=== PATIENT | male | born 1980 | race African-American/Black ===

== ENCOUNTER 2016-05-09 10:35 | Inpatient (IN) | payer MEDICAID ==
[2016-05-09] VITALS (16 sets, daily range): BP systolic 113–153; BP diastolic 56–89; PULSE 45–105; RESP 14–22; TEMP 98.7–100.1; O2SAT 95–100
[~2016-05-09] VITALS: Ht 182.9 cm; Wt 89.0 kg
[~2016-05-09 10:35] MED LIST: BACT2OIN TOP; BACT800T5 PO; CALA240T PO; CLIN150 PO; CLON0.5T PO; FIORIC PO; LACO100 PO; LEVE500 PO
[2016-05-09] MEDS ORDERED: LACO50 PO (10:42)
[2016-05-09] MEDS ORDERED: KEPP10002 PO (10:42)
[2016-05-09] MEDS ORDERED: LORazepam 2 MG/ML VIAL ONE (10:43)
[2016-05-09] MEDS ORDERED: VERA120T3 PO (10:47)
[2016-05-09] MEDS: LORazepam 2 MG/ML VIAL ONE ×2 (10:49→11:14)
--- NOTE | 2016-05-09 10:59 | PD ---
HPI Chief Complaint: Seizure Time Seen by Provider: 10:37 Travel History International Travel<30 days: No Contact w/Intl Traveler<30days: No Traveled to known affect area: No History of Present Illness HPI This patient has long-standing history of seizure problems. Patient is not able to provide any history or review of systems. He is brought in by his girlfriend. She reports that he had a headache this morning which always precedes his seizures. He then followed this with 3 separate seizures. His seizures are very similar. She reports that he looks to the left and starts blinking and twitching. He had a seizure in the exam room while I was looking at him and he did precisely that. He started drooling. He is nonverbal at this time [facility] Past Medical History Hx Anticoagulant Therapy: No Anxiety: Yes Cardiovascular Problems: No Chemotherapy: No Cerebrovascular Accident: Yes (AVM) Diabetes: No Diminished Hearing: No Endocrine: No Genitourinary: No Hypertension: Yes Immune Disorder: No Musculoskeletal: No Neurologic: Yes (AVM/ CVA) Reproductive: No Respiratory: No Migraines: Yes Seizures: Yes Past Surgical History Neurologic Surgery: Yes (brain sx with plate 2007) Social History Alcohol Use: No Tobacco Use: No Substance Use: Yes (marijuana once a week) Allergies-Medications (Allergen,Severity, Reaction): Coded Allergies: Iodine (Verified Allergy, Severe, 05/09/16) Penicillin (Verified Allergy, Severe, Anaphylaxis, 05/09/16) Percocet (Verified Allergy, Severe, Anaphylaxis, 05/09/16) PATIENT DENIES ALLERGY Dilantin (Verified Adverse Reaction, Intermediate, blurry vision, 11/26/15) Reported Meds & Prescriptions Reported Meds & Active Scripts Active Reported Verapamil (Verapamil HCl) 120 Mg Tab 240 Mg PO DAILY Vimpat (Lacosamide) 50 Mg Tab 200 PO BID Keppra (Levetiracetam) 1,000 Mg Tab 1,000 Mg PO Q8HR Review of Systems ROS Limitations: Clinical Condition, Altered Mental Status, Poor Historian Physical Exam Narrative GENERAL: Well-nourished, well-developed patient who appears confused and postictal. SKIN: Warm and dry. HEAD: Atraumatic. Normocephalic. EYES: Pupils equal and round. No scleral icterus. No injection or drainage. ENT: No nasal bleeding or discharge. Mucous membranes pink and moist. Now has gag reflex as the seizure has past NECK: Trachea midline. No JVD. CARDIOVASCULAR: Regular rate and rhythm. No murmur appreciated. RESPIRATORY: No accessory muscle use. Clear to auscultation. Breath sounds equal bilaterally. GASTROINTESTINAL: Abdomen soft, non-tender, nondistended. Hepatic and splenic margins not palpable. MUSCULOSKELETAL: No obvious deformities. No clubbing. No cyanosis. No edema. NEUROLOGICAL: Awake but drowsy and confused. No obvious cranial nerve deficits. Difficult to gauge motor and sensory exams as he does not follow commands or participate in the exam. He is nonverbal. PSYCHIATRIC: Altered mood and affect; insight and judgment poor. Data Data Last Documented VS Vital Signs Date Time Temp Pulse Resp B/P Pulse Ox O2 Delivery O2 Flow Rate FiO2 05/09/16 11:49 45 20 152/89 100 05/09/16 11:08 Nasal Cannula 3 05/09/16 10:37 99.6 Orders Lorazepam Inj (Ativan Inj) (05/09/16 10:43) Lorazepam Inj (Ativan Inj) (05/09/16 10:49) Lorazepam Inj (Ativan Inj) (05/09/16 11:00) Iv Access Insert/Monitor (05/09/16 10:50) Complete Blood Count With Diff (05/09/16 10:50) Basic Metabolic Panel (Bmp) (05/09/16 10:50) Ct Brain W/O Iv Contrast(Rout) (05/09/16 ) Valproate Inj (Depacon Inj) (05/09/16 11:30) Etomidate Inj (Amidate Inj) (05/09/16 11:35) Succinylcholine Inj (Quelicin Inj) (05/09/16 11:35) Propofol 1000 Mg/100 Ml Inj (Diprivan 10 (05/09/16 11:41) Labs Laboratory Tests Test 05/09/16 10:50 White Blood Count 6.9 TH/MM3 Red Blood Count 4.92 MIL/MM3 Hemoglobin 15.2 GM/DL Hematocrit 45.4 % Mean Corpuscular Volume 92.3 FL Mean Corpuscular Hemoglobin 30.9 PG Mean Corpuscular Hemoglobin 33.5 % Concent Red Cell Distribution Width 12.6 % Platelet Count 208 TH/MM3 Mean Platelet Volume 8.7 FL Neutrophils (%) (Auto) 60.5 % Lymphocytes (%) (Auto) 31.0 % Monocytes (%) (Auto) 6.3 % Eosinophils (%) (Auto) 1.4 % Basophils (%) (Auto) 0.8 % Neutrophils # (Auto) 4.2 TH/MM3 Lymphocytes # (Auto) 2.1 TH/MM3 Monocytes # (Auto) 0.4 TH/MM3 Eosinophils # (Auto) 0.1 TH/MM3 Basophils # (Auto) 0.1 TH/MM3 CBC Comment DIFF FINAL Differential Comment Sodium Level 143 MEQ/L Potassium Level 4.0 MEQ/L Chloride Level 107 MEQ/L Carbon Dioxide Level 28.3 MEQ/L Anion Gap 8 MEQ/L Blood Urea Nitrogen 15 MG/DL Creatinine 1.04 MG/DL Estimat Glomerular Filtration 99 ML/MIN Rate Random Glucose 131 MG/DL Calcium Level 9.1 MG/DL MDM Medical Decision Making Medical Screen Exam Complete: Yes Emergency Medical Condition: Yes Medical Record Reviewed: Yes Differential Diagnosis Status epilepticus, breakthrough seizure, tremor, intracranial hemorrhage Narrative Course I have reviewed the patient's electronic medical record. Reviewed his seizure admission from 2015 including neurologic consultation and brain MRI and MRA results When I evaluate him in the emergency room bed he is actively seizing The seizure continues and I gave him 1 mg IV Ativan Seizure persists. Patient is drooling and has no airway control so I am considering intubating him to obtain airway. I gave him a second L gram IV Ativan and just as I was going to start the intubation process he came out of the seizure. He now is confused and looking around but has quit drooling and has a gag reflex and is controlling his airway Patient arrives critically ill, essentially in status epilepticus After controlling the seizure I obtained lab studies and sent him to the brain scan are given his history of AVM and hemorrhage and craniotomy as well as the headache he had Brain CT shows stable encephalomalacia CBC metabolic profile is normal I reviewed with neurologist representative personal service Dr. Gupta She recommended a load of IV Depacon 1200 mg which we have initiated However the patient continued to seize and wanted to full-blown status epilepticus. He continued to drool and had no airway control and no gag reflex I have intubated him to control his airway INTUBATION: The patient was put in optimal position for the procedure. Rapid sequence intubation was initiated by me using 30 milligrams of etomidate IV and 130 milligrams of succinylcholine IV. The patient was intubated with a 80 cuffed endotracheal tube. Tube placement was confirmed by visualization of the tube and balloon passing through the cords, capnometry. Breath sounds were equal and well aerated bilaterally postintubation. No breath sounds over stomach. Patient tolerated procedure well. Unfortunately soon after intubation the cuff would not hold air and so I had to use the tube exchanger to replace the ET tube. The second ET tube seems to be holding better and he has saturations are 100% and I have started Diprivan drip. On the second to be has good color change and fogging of tube I reviewed his chest x-ray Patient is critically ill going to intensive care on a ventilator and getting loaded with IV Depacon for status epilepticus Call placed to kiln loader to discuss Multiple rechecks needed and constant monitoring in this complex patient Critical Care Narrative Aggregate critical care time was 80 minutes. Time to perform other separately billable procedures was not included in the critical care time. My time did not include minutes spent treating any other patients simultaneously or on activities that did not directly contribute to the patient's treatment. The services I provided to this patient were to treat and/or prevent clinically significant deterioration that could result in: Loss of airway, cardiopulmonary arrest, permanent brain injury I provided critical care services requiring my management, as noted below: Chart data review, documentation time, medication orders and management, vital sign assessments/reviewing monitor data, ordering and reviewing lab tests, ordering and interpreting/reviewing x-rays and diagnostic studies, care of the patient and discussion of the patient with the admitting physicians. Elkin Forbes MD May 09, 2016 10:59
[2016-05-09] MEDS ORDERED: LORazepam 2 MG/ML VIAL IV PUSH ONE (11:00)
[2016-05-09 11:09] LABS: AUTOMATED NEUTROPHIL # 4.2 TH/MM3 (1.8-7.7); BASOPHIL # 0.1 TH/MM3 (0-0.2); BASOPHIL % 0.8 % (0.0-2.0); EOSINOPHIL # 0.1 TH/MM3 (0-0.4); EOSINOPHIL % 1.4 % (0.0-4.0); HEMATOCRIT 45.4 % (39.0-51.0); HEMO FLAGS DIFF FINAL; LYMPHOCYTE # 2.1 TH/MM3 (1.0-4.8); MEAN CELL VOLUME 92.3 FL (80.0-100.0); MEAN CORPUSCULAR HEMOGLOBIN 30.9 PG (27.0-34.0); MEAN CORPUSCULAR HGB CONC 33.5 % (32.0-36.0); MONO % 6.3 % (0.0-8.0); NEUT % 60.5 % (16.0-70.0); PLATELET COUNT 208 TH/MM3 (150-450); RED BLOOD COUNT 4.92 MIL/MM3 (4.50-5.90); RED CELL DISTRIBUTION WIDTH 12.6 % (11.6-17.2); WHITE BLOOD COUNT 6.9 TH/MM3 (4.0-11.0)
--- NOTE | 2016-05-09 11:20 | RADRPT ---
EXAM DATE/TIME: 05/09/2016 10:59 [facility] COMPARISON: MRI BRAIN W & W/O CONTRAST, November 20, 2015, 9:25. CT BRAIN W/O CONTRAST, November 18, 2015, 19 :07. INDICATIONS : Seizure, altered mental status. RADIATION DOSE: 35.02 CTDIvol (mGy) MEDICAL HISTORY : Stroke. Seizures. Hypertension. SURGICAL HISTORY : Craniotomy. ENCOUNTER: Initial ACUITY: 1 day PAIN SCALE: Non-responsive LOCATION: cranial TECHNIQUE: Multiple contiguous axial images were obtained of the head. Using automated exposure control and adj ustment of the mA and/or kV according to patient size, radiation dose was kept as low as reasonably a chievable to obtain optimal diagnostic quality images. FINDINGS: CEREBRUM: The ventricles are normal for age. No evidence of midline shift, mass lesion, hemorrhage or acute in farction. No extra-axial fluid collections are seen. Chronic right parietal lobe encephalomalacia ag ain noted status post surgery. POSTERIOR FOSSA: The cerebellum and brainstem are intact. The 4th ventricle is midline. The cerebellopontine angle i s unremarkable. EXTRACRANIAL: The visualized portion of the orbits is intact. SKULL: The calvaria is intact. No evidence of skull fracture. CONCLUSION: 1. No evidence of acute intracranial abnormality. 2. Previous right craniotomy. Unchanged encephalomalacia of the right parietal lobe. Mitchell Morales MD on May 09, 2016 at 11:16 Board Certified Radiologist. This report was verified electronically.
[2016-05-09 11:23] LABS: BICARBONATE 28.3 MEQ/L (21.0-32.0)
[2016-05-09] MEDS ORDERED: SODIUM CHLORIDE 0.9% IV ONE (11:30)
[2016-05-09] MEDS ORDERED: VALPROATE IV ONE (11:30)
[2016-05-09] MEDS ORDERED: SUCCINYLCHOLINE CHLORIDE 200 MG/10 ML VIAL ONE (11:35)
[2016-05-09] MEDS ORDERED: ETOMIDATE 40 MG/20 ML VIAL ONE (11:35)
[2016-05-09] MEDS ORDERED: PROPOFOL 1000 MG/100 ML INJ 100 ML ONE (11:41)
[2016-05-09] MEDS: PROPOFOL 1000 MG/100 ML INJ 100 ML IV SCH ×3 (12:05→22:42)
[2016-05-09] MEDS ORDERED: ETOMIDATE 20 MG/10 ML VIAL IV PUSH ONE (12:15)
[2016-05-09] MEDS ORDERED: SUCCINYLCHOLINE CHLORIDE 200 MG/10 ML VIAL IV PUSH ONE (12:15)
--- NOTE | 2016-05-09 12:19 | RADRPT ---
EXAM DATE/TIME: 05/09/2016 12:13 [facility] COMPARISON: CHEST SINGLE AP, November 19, 2015, 4:05. INDICATIONS : Evaluate intubation MEDICAL HISTORY : None. SURGICAL HISTORY : None. ENCOUNTER: Initial ACUITY: 1 day PAIN SCORE: Non-responsive. LOCATION: Bilateral chest FINDINGS: Mild, patchy airspace opacities persist, mainly on the left. No pleural effusion seen. No pneumothora x. Heart size stable, upper limits of normal. Endotracheal tube tip is about 2.6 cm above the gerald. There is a nasogastric tube with tip in the s tomach. CONCLUSION: No significant change mild airspace opacities on the left. Endotracheal tube tip is about 2.6 cm abov e the gerald. Mitchell Morales MD on May 09, 2016 at 12:16 Board Certified Radiologist. This report was verified electronically.
[2016-05-09] MEDS ORDERED: levETIRAcetam 1000 MG INJ 100 ML IV ONE (12:30)
[2016-05-09 12:31] LABS: BLOOD GAS BASE EXCESS -0.1 mmol/L (-2-2); BLOOD GAS HCO3 24 mmol/L (22-26); BLOOD GAS METHEMOGLOBIN 2.4 % (0-2); BLOOD GAS O2 HGB SATURATION 95 % (90-100); BLOOD GAS OXYGEN CONTENT 20.4 Vol % (12.0-20.0); BLOOD GAS PCO2 41 mmHg (38-42); BLOOD GAS PO2 184 mmHG (61-120); CRITICAL VALUE NO; DRAW SITE LT RADIAL; FIO2 50 %; NUMBER OF ARTERIAL PUNCTURES 2; OXYGEN DEVICE VENTILATOR; STAT YES; TEMP CORR TO 98.6; ULNAR PULSE PRESENT
[2016-05-09] MEDS ORDERED: POTASSIUM PHOSPHATE INJ 30 MMOL in SODIUM CHLOR 0.9% 250 ML INJ 250 ML IV PRN (12:45)
[2016-05-09] MEDS ORDERED: POTASSIUM PHOSPHATE MONOBASIC 500 MG TAB PO PRN (12:45)
[2016-05-09] MEDS ORDERED: POTASSIUM CHLOR 40 MEQ PREMIX 100 ML IV PRN ×2 (12:45)
[2016-05-09] MEDS ORDERED: SENNOSIDES SYRUP 8.8 MG/5 ML CUP G-TUBE PRN (12:45)
[2016-05-09] MEDS ORDERED: GLUCAGON 1 MG/ML VIAL OTHER PRN (12:45)
[2016-05-09] MEDS ORDERED: SODIUM PHOSPHATE INJ 30 MMOL in SODIUM CHLOR 0.9% 250 ML INJ 240 ML IV PRN (12:45)
[2016-05-09] MEDS ORDERED: MISCELLANEOUS NURSING INFORMATION XX SCH (12:45)
[2016-05-09] MEDS ORDERED: MAGNESIUM OXIDE 400 MG TAB PO PRN (12:45)
[2016-05-09] MEDS ORDERED: PROPOFOL 1000 MG/100 ML INJ 100 ML IV SCH (12:45)
[2016-05-09] MEDS ORDERED: ONDANSETRON HCL 4 MG/2 ML VIAL IV PRN (12:45)
[2016-05-09] MEDS ORDERED: RESP: ALBUTEROL 2.5 MG/IPRATROPIUM 0.5 MG NEB (PRN) INH (12:45)
[2016-05-09] MEDS ORDERED: MAGNESIUM SULFATE INJ 4 GM in SODIUM CHLORIDE 0.9% INJ 92 ML IV PRN (12:45)
[2016-05-09] MEDS ORDERED: CHLORHEXIDINE GLUCONATE 2 % 1 PACK (2 CLOTHS) TOP PRN (12:45)
[2016-05-09] MEDS ORDERED: SODIUM CHLORIDE 0.9% FLUSH 5 ML FLUSH IV FLUSH PRN (12:45)
[2016-05-09] MEDS ORDERED: ACETAMINOPHEN 325 MG TAB PO PRN (12:45)
[2016-05-09] MEDS ORDERED: POTASSIUM CL 40 MEQ/30 ML LIQ UDC PO/TUBE PRN ×2 (12:45)
[2016-05-09] MEDS ORDERED: POTASSIUM CHLOR 20 MEQ PREMIX 100 ML IV PRN ×2 (12:45)
[2016-05-09] MEDS ORDERED: POTASSIUM PHOSPHATE MONOBASIC 500 MG TAB PO/TUBE PRN (12:45)
[2016-05-09] MEDS ORDERED: MAGNESIUM SULFATE INJ 2 GM in SODIUM CHLORIDE 0.9% INJ 96 ML IV PRN (12:45)
--- NOTE | 2016-05-09 12:49 | HHI.HP ---
[facility] Service Critical Care Medicine Primary Care Physician Manas Cottrell M.D. Admission Diagnosis status epilepticus Diagnosis: (1) Cannabis use, unspecified, uncomplicated Diagnosis: Principal (2) Anxiety disorder, unspecified Diagnosis: Principal (3) Status epilepticus Diagnosis: Principal (4) Acute respiratory failure Diagnosis: Principal (5) History of arteriovenous malformation (AVM) Diagnosis: Principal (6) Hypertension Diagnosis: Principal Chief Complaint: Seizure Travel History International Travel<30 Days: No Contact w/Intl Traveler <30 Da: No Traveled to Known Affected Are: No History of Present Illness This is a 35-year-old AA male. Date of admission 05/09/2016. Past medical history includes migraine induced seizure disorder, status post craniotomy secondary to AVM in remote past, hypertension. Girlfriend states patient is compliant with medications. Patient presents to [facility] with seizure activity since at least 10 AM this morning. Patient does have history of craniotomy secondary to AVM secondary to a left-sided CVA in the remote past. He is said several seizures most recently June and November 2015 both of which required intubation. Usually the seizure brought by stressors. Yesterday , patient did have an alcoholic beverage which is unusual for him. Patient was complaining of a headache as of 6:30 this am. His girlfriend found the patient he was actively seizing. Patient received Ativan in [place] [facility]. Patient received 1200 mg Depakote IV after discussion with neurology. Patient was intubated with 130 mg succinylcholine 30 mg etomidate for airway protection. CT head revealed rights parietal/ temporal encephalomalacia but no other acute findings. Patient is currently admitted to propofol drip at 30 mics per kilogram per minute. 2 external jugular vein catheters and one peripheral IV was placed. We are asked to admit. Review of Systems ROS Limitations: Intubated Past Family Social History Allergies: Coded Allergies: Betadine (Verified Allergy, Severe, 05/09/16) SKIN BURNING Penicillin (Verified Allergy, Severe, Anaphylaxis, 05/09/16) Percocet (Verified Allergy, Severe, Anaphylaxis, 05/09/16) PATIENT DENIES ALLERGY Dilantin (Verified Adverse Reaction, Intermediate, blurry vision, 11/26/15) Past Medical History Anxiety Cannabis use Seizure disorder Hypertension History of AVM status post craniotomy Past Surgical History Craniotomy secondary to AVM Reported Medications Verapamil 240 mg by mouth daily Keppra 1000m g by mouth 3 times a day Vimpat 200 mg by mouth twice a day Active Ordered Medications Reviewed in EMR Family History Hypertension diabetes mother side Social History Denies tobacco or IV drug use. Positive for THC use. Social alcohol. According to girlfriend consumed 1 alcoholic beverage last night Physical Exam Vital Signs Vital Signs Date Time Temp Pulse Resp B/P Pulse Ox O2 Delivery O2 Flow Rate FiO2 05/09/16 12:00 92 22 145/79 100 Ventilator 50 05/09/16 11:52 50 05/09/16 11:49 45 20 152/89 100 05/09/16 11:08 105 20 153/77 100 Nasal Cannula 3 05/09/16 10:41 95 Nasal Cannula 2 05/09/16 10:37 99.6 98 18 150/62 98 Physical Exam GENERAL: 35-year-old male, critically ill currently resting bed in no acute distress SKIN: Warm and dry. No rash HEAD: Atraumatic. Normocephalic. EYES: Pupils equal and round about 3 mm bilaterally and reactive. No scleral icterus. No injection or drainage. ENT: No nasal bleeding or discharge. Mucous membranes pink and moist. NECK: Trachea midline. No JVD. CARDIOVASCULAR: Regular rate and rhythm. S1, S2. No S4. Without murmur RESPIRATORY:. Clear to auscultation. Breath sounds equal bilaterally. GASTROINTESTINAL: Abdomen soft, non-tender, nondistended. Hypoactive bowel sounds are appreciated MUSCULOSKELETAL: Extremities without clubbing, cyanosis, or edema. No obvious deformities. NEUROLOGICAL: Withdraws to pain in all 4 extremities. Positive gag. Positive corneal reflex. No obvious external epileptiform noted Laboratory Laboratory Tests Test 05/09/16 10:50 White Blood Count 6.9 Red Blood Count 4.92 Hemoglobin 15.2 Hematocrit 45.4 Mean Corpuscular Volume 92.3 Mean Corpuscular Hemoglobin 30.9 Mean Corpuscular Hemoglobin 33.5 Concent Red Cell Distribution Width 12.6 Platelet Count 208 Mean Platelet Volume 8.7 Neutrophils (%) (Auto) 60.5 Lymphocytes (%) (Auto) 31.0 Monocytes (%) (Auto) 6.3 Eosinophils (%) (Auto) 1.4 Basophils (%) (Auto) 0.8 Neutrophils # (Auto) 4.2 Lymphocytes # (Auto) 2.1 Monocytes # (Auto) 0.4 Eosinophils # (Auto) 0.1 Basophils # (Auto) 0.1 CBC Comment DIFF FINAL Differential Comment Sodium Level 143 Potassium Level 4.0 Chloride Level 107 Carbon Dioxide Level 28.3 Anion Gap 8 Blood Urea Nitrogen 15 Creatinine 1.04 Estimat Glomerular Filtration 99 Rate Random Glucose 131 Calcium Level 9.1 Result Diagram: 05/09/16 1050 05/09/16 1050 Imaging Last Impressions Head CT 05/09/16 0000 Signed Impressions: Service Date/Time: Monday, May 09, 2016 10:59 - CONCLUSION: 1. No evidence of acute intracranial abnormality. 2. Previous right craniotomy. Unchanged encephalomalacia of the right parietal lobe. Mitchell Morales MD Chest X-Ray 05/09/16 0000 Signed Impressions: Service Date/Time: Monday, May 09, 2016 12:13 - CONCLUSION: No significant change mild airspace opacities on the left. Endotracheal tube tip is about 2.6 cm above the gerald. 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 These been resumed at 20 mg IV twice a day Vimpat and 50 mg Keppra twice a day Loaded with Depakote in ED approximately 1200 mg. Currently on 500 mg 3 times a day. Recheck level in a.m. EEG/MRI ordered. Dr. Gupta - Neurology consulted Currently on propofol/Versed drips for sedation/analgesia while intubated Goal of RA SS -2 Daily sedation vacation MRI 07/27 revealed cephalization right-sided parietal lobe probably from prior AVM with gliosis CT head this admission revealed similar findings right-sided parietal lobe encephalomalacia's CV: History of hypertension Currently normal saline at 84 cc now. Patient is on propofol 240 mg daily at home for hypertension. This is been held As needed labetalol/hydralazine/Nitropaste is systolic blood pressure greater than 160 Resp: Acute respiratory failure secondary to altered mental status ACV 14/500/5/100 Ventilator bundle As needed bronchodilator therapy Spontaneous breathing trials daily Chest x-ray reveals no significant cardiopulmonary findings. ET tube 3 cm above gerald. ABG post intubation currently pending GI: Initiate enteral feedings with Jevity 1.5 goal 55 cc an hour Protonix for GI prophylaxis Colace/as needed Senokot for bowel regimen Liver function tests pending : Antonio will be placed for accurate I's and O's in a critically ill patient Endo: Hyperglycemia Sliding-scale insulin with Accu-Cheks to maintain euglycemia/low regimen/every 6 hours Renal: Creatinine currently within normal limits. Recheck BMP in a.m. Heme: CBC within normal limits. Recheck level in a.m. Coags currently pending ID: Monitor for infection FEN: Replace electrolytes as clinically indicated using ICU A protocol MSK: PT evaluate and treat Access - Utilize peripheral IV. Central line if indicated Prophylaxis - GI - Protonix - DVT - SCD/pharmacological prophylaxis currently held in light of seizure activity. Resume when clinically indicated Critical Care: The total critical care time was 65 minutes. Time to perform other separately billable procedures was not included in the critical care time. Code Status Full code Discussed Condition With Dr. Forbes/ED physician. Patient's girlfriend. ED RN. Care plan discussed and all questions answered. Problem Qualifiers (1) Acute respiratory failure: Qualified Code: J96.00 - Acute respiratory failure, unspecified whether with hypoxia or hypercapnia (2) Hypertension: Qualified Code: I10 - Essential hypertension Avni Hayes MD May 09, 2016 12:49
[2016-05-09] MEDS: ARTIFICIAL TEARS OPTH SOLN 15 ML BTL EACH EYE SCH ×2 (13:00→17:34)
[2016-05-09 13:15] LABS: AMPHETAMINE, URINE NEG (NEG); BARBITURATES, URINE NEG (NEG); COCAINE, URINE NEG (NEG)
[2016-05-09] MEDS ORDERED: LABETALOL HCL 100 MG/20 ML VIAL IV PUSH PRN (13:15)
[2016-05-09] MEDS ORDERED: hydrALAZINE HCL 20 MG/ML VIAL IV PUSH PRN (13:15)
[2016-05-09] MEDS ORDERED: NITROGLYCERIN 2% OINT 1 GM PACKET TOPICAL PRN (13:15)
--- NOTE | 2016-05-09 13:24 | EKG ---
Date Performed: 05/09/2016 Time Performed: 10:40:26 PTAGE: 35 years EKG: Sinus rhythm WITH MARKED SINUS ARRHYTHMIA BORDERLINE ECG PREVIOUS TRACING : 11/18/2015 20.01 No significant change from previous tracing noted. DOCTOR: Jules Jovel Interpretating Date/Time 05/09/2016 13:24:29
[2016-05-09] MEDS: SODIUM CHLOR 0.9% 1000 ML INJ 1,000 ML IV SCH ×2 (13:45→23:56)
[2016-05-09] MEDS ORDERED: MIDAZOLAM 100 MG/ML INJ 100 ML ONE (13:48)
[2016-05-09] MEDS: MIDAZOLAM 100 MG/ML INJ 100 ML IV SCH (13:51)
[2016-05-09 13:54] LABS: ALKALINE PHOSPHATASE 85 U/L (45-117); ALT (GPT) 79 U/L (12-78); AST (GOT) 32 U/L (15-37); CREATINE KINASE 185 U/L (39-308); INDIRECT BILIRUBIN 0.4 MG/DL (0.0-0.8); MAGNESIUM 2.2 MG/DL (1.5-2.5); TOTAL BILIRUBIN ADULT 0.5 MG/DL (0.2-1.0)
--- NOTE | 2016-05-09 14:47 | RADRPT ---
EXAM DATE/TIME: 05/09/2016 14:12 [facility] COMPARISON: CT BRAIN W/O CONTRAST, May 09, 2016, 10:59. MRI BRAIN W & W/O CONTRAST, November 20, 2015, 9: 25. INDICATIONS : Seizures. MEDICAL HISTORY : Seizures. SURGICAL HISTORY : Craniotomy. ENCOUNTER: Initial ACUITY: 1 day PAIN SCORE: 0/10 LOCATION: TECHNIQUE: Multiplanar, multisequence MRI of the brain was performed without contrast. FINDINGS: No bleed, mass, mass effect or midline shift. There is no restricted diffusion. Changes of previous right parietal craniotomy again noted. There is chronic encephalomalacia and old hemosiderin deposition in the right parietal lobe, unchanged. CONCLUSION: 1. No bleed, acute infarct or other acute intracranial abnormality. 2. Surgical changes of the right parietal lobe again noted. Mitchell Morales MD on May 09, 2016 at 14:44 Board Certified Radiologist. This report was verified electronically.
[2016-05-09] MEDS ORDERED: CHLORHEXIDINE GLUCONATE 2 % 1 PACK (2 CLOTHS)(extra cloths) TOP PRN (15:15)
--- NOTE | 2016-05-09 16:49 | MG ---
cc: GILBERT OCHOA M.D. Lab No: Date: 05/09/2016 Age: Sex: M Race: DATE OF 1980, 35 years old ELECTROENCEPHALOGRAM NUMBER [id number] Freddy Tuttlelie 26 Photic stimulation, intubated, sedated with Diprivan, moving extremities spontaneously. CT shows right craniotomy. MRI did not show any acute changes. The right craniotomy from an AVM. History of seizures, currently started on Depakote but on Vimpat and Keppra at home. Ativan had been given as well. DESCRIPTION OF RECORD There is some 7-8 Hz background rhythm at times. EKG looks artifactual at times but generally sinus rhythm. Some noise and the activity from the blood pressure cuff inflating but overall no epileptic activity. Photic stimulation, no significant driving response. IMPRESSION Some mild background slowing seen may be due to sedation effect. No evidence of epileptic activity in this one recording. Clinical correlation. MD PHILIPPE Sal/ABISAI /4:21 PM /4:41 PM
[2016-05-09] MEDS: VALPROATE INJ 500 MG in SODIUM CHLORIDE 0.9% INJ 100 ML IV SCH (17:30)
[2016-05-09] MEDS: INSULIN NovoLIN REGULAR SUPPLEMENTAL SCALE SQ SCH ×2 (17:31→23:55)
[2016-05-09] MEDS: DEXTROSE 50% IN WATER 50 ML VIAL(D50) IV PUSH PRN ×2 (17:33→20:09)
--- NOTE | 2016-05-09 17:45 | MB ---
cc: GILBERT OCHOA M.D. DATE OF CONSULTATION 05/09/2016 DATE OF 1980, 35 years old REASON FOR CONSULTATION Seizures, possible status. HISTORY OF THE PRESENT ILLNESS A 35-year-old man with a history of migraines, epilepsy, craniotomy due to AVMs in the past and hypertension. He is on antiepileptic medication. He is compliant. He comes in because of seizure activity since about 10 o'clock in the morning. He had a craniotomy from the AVM left-sided in the past. Had several seizures from June to November which required intubation. When he was last seen here, my partner Dr. Rowan had seen him. Medications were adjusted, increased. Currently on Keppra 1000 mg three times a day and Vimpat 200 mg twice a day. Apparently yesterday he did have some alcohol which is unusual for him. He was complaining of a headache this morning and found seizing. He had about five seizures, received some Depakote. I informed the ED to put him on 1200 mg of Depakote. He was intubated for airway infection. ALLERGIES BETADINE, PENICILLIN, PERCOCET, DILANTIN SOME ADVERSE REACTION BLURRY VISION BUT MAY NOT BE A TRUE ALLERGY. PAST MEDICAL HISTORY As stated. MEDICATIONS Home medicines are: 1. Verapamil. 2. Keppra. 3. Vimpat. SOCIAL HISTORY Denies tobacco or IV drugs. Positive for THC, social alcohol. Apparently had stated he consumed one drink yesterday. PHYSICAL EXAMINATION VITAL SIGNS: Temperature is 99.6, pulse 76, respiratory rate 18, blood pressure 119/58. Sating at 100% on ventilator with FIO2 of 100%. GENERAL: He is intubated on the ventilator on sedation, Diprivan and versed. NEUROLOGICAL: Pinpoint pupils, sedated examination. Does not follow. Does not move. Tone is flaccid. Toes are neutral. LABORATORY DATA CBC unremarkable. Chemistries, lactic acid 2.4, ammonia was 58, phosphorus 1.8, ALT 79. Toxicology positive for cannabinoids. Keppra level is pending. IMAGING He did have an MRI of the brain that did not show any acute findings except for surgical changes over the right parietal lobe. IMPRESSION Seizure, refractory status. RECOMMENDATIONS The recommendations are to continue Keppra current dose, Vimpat current dose and continue Depacon 500 mg q. eight. Check a level in the morning. EEG was just completed, the report is pending. Hopefully if stable in the morning he may be weaned off the ventilator. Continue current care. Further recommendations accordingly. MD PHILIPPE Sal/ABISAI /4:07 PM /5:27 PM
[2016-05-09] MEDS: levETIRAcetam INJ 1,500 MG in SODIUM CHLORIDE 0.9% INJ 100 ML IV SCH (20:22)
[2016-05-09] MEDS: DOCUSATE SODIUM 100 MG CAP PO SCH (20:35)
[2016-05-09] MEDS: SODIUM CHLORIDE 0.9% FLUSH 5 ML FLUSH IV FLUSH SCH (20:36)
[2016-05-09] MEDS: JUVEN POWDER 1 PACK G-TUBE SCH (21:00)
[2016-05-09] MEDS ORDERED: levETIRAcetam INJ 500 MG in SODIUM CHLORIDE 0.9% INJ 100 ML IV SCH (21:00)
[2016-05-09] MEDS ORDERED: levETIRAcetam 1000 MG INJ 100 ML IV SCH (21:00)
[2016-05-09] MEDS: CHLORHEXIDINE 0.12% (ORAL KIT) 15 ML CUP MT SCH (22:42)
[2016-05-09] MEDS: LACOSAMIDE INJ 200 MG in SODIUM CHLORIDE 0.9% INJ 100 ML IV SCH (22:43)
[2016-05-10] VITALS (15 sets, daily range): BP systolic 112–133; BP diastolic 53–69; PULSE 64–89; RESP 16–20; TEMP 98–99.3; O2SAT 98–100
[2016-05-10] MEDS: PROPOFOL 1000 MG/100 ML INJ 100 ML IV SCH ×2 (01:20→06:24)
[2016-05-10] MEDS: MIDAZOLAM 100 MG/ML INJ 100 ML IV SCH (01:20)
[2016-05-10] MEDS: VALPROATE INJ 500 MG in SODIUM CHLORIDE 0.9% INJ 100 ML IV SCH ×3 (01:22→17:58)
[2016-05-10] MEDS ORDERED: CHLORHEXIDINE GLUCONATE 2 % 1 PACK (2 CLOTHS) TOP SCH (04:00)
[2016-05-10] MEDS: CHLORHEXIDINE GLUCONATE 2 % 1 PACK (2 CLOTHS)(taper/protocol) TOP SCH (04:00)
[2016-05-10 05:07] LABS: PROTHROMBIN TIME - PATIENT 11.4 SEC (9.8-11.6)
[2016-05-10 05:08] LABS: AUTOMATED NEUTROPHIL # 4.3 TH/MM3 (1.8-7.7); BASOPHIL % 0.6 % (0.0-2.0); EOSINOPHIL % 0.6 % (0.0-4.0); HEMATOCRIT 39.8 % (39.0-51.0); HEMO FLAGS DIFF FINAL; LYMPH % 27.6 % (9.0-44.0); LYMPHOCYTE # 1.9 TH/MM3 (1.0-4.8); MEAN CELL VOLUME 92.3 FL (80.0-100.0); MEAN CORPUSCULAR HEMOGLOBIN 31.2 PG (27.0-34.0); MEAN CORPUSCULAR HGB CONC 33.8 % (32.0-36.0); MONO % 8.6 % (0.0-8.0); NEUT % 62.6 % (16.0-70.0); PLATELET COUNT 147 TH/MM3 (150-450); RED BLOOD COUNT 4.31 MIL/MM3 (4.50-5.90); RED CELL DISTRIBUTION WIDTH 12.9 % (11.6-17.2); WHITE BLOOD COUNT 6.8 TH/MM3 (4.0-11.0)
[2016-05-10 05:33] LABS: ALKALINE PHOSPHATASE 65 U/L (45-117); ALT (GPT) 52 U/L (12-78); ANION GAP 7 MEQ/L (5-15); AST (GOT) 29 U/L (15-37); BICARBONATE 27.8 MEQ/L (21.0-32.0); BLOOD UREA NITROGEN 9 MG/DL (7-18); CHLORIDE 109 MEQ/L (98-107); GLOMERULAR FILTRATION RATE 102 ML/MIN (>89); MAGNESIUM 2.3 MG/DL (1.5-2.5); POTASSIUM 3.9 MEQ/L (3.5-5.1); SODIUM (NA) 144 MEQ/L (136-145); TOTAL BILIRUBIN ADULT 0.6 MG/DL (0.2-1.0)
[2016-05-10] MEDS: INSULIN NovoLIN REGULAR SUPPLEMENTAL SCALE SQ SCH ×2 (06:00→17:56)
[2016-05-10] MEDS: CHLORHEXIDINE 0.12% (ORAL KIT) 15 ML CUP MT SCH ×2 (08:00→20:00)
[2016-05-10] MEDS: ARTIFICIAL TEARS OPTH SOLN 15 ML BTL EACH EYE SCH ×3 (09:00→19:30)
[2016-05-10] MEDS: JUVEN POWDER 1 PACK G-TUBE SCH ×2 (09:00→21:00)
[2016-05-10] MEDS: LACOSAMIDE INJ 200 MG in SODIUM CHLORIDE 0.9% INJ 100 ML IV SCH ×2 (09:12→21:00)
[2016-05-10] MEDS: DOCUSATE SODIUM 100 MG CAP PO SCH ×2 (09:13→21:00)
[2016-05-10] MEDS: PANTOPRAZOLE SODIUM 40 MG VIAL IV SCH (09:13)
[2016-05-10] MEDS: SODIUM CHLORIDE 0.9% FLUSH 5 ML FLUSH IV FLUSH SCH ×2 (09:13→21:00)
[2016-05-10] MEDS: levETIRAcetam INJ 1,500 MG in SODIUM CHLORIDE 0.9% INJ 100 ML IV SCH (09:13)
--- NOTE | 2016-05-10 14:07 | HHI.CCPN ---
Subjective Remarks/Hospital Course This is a 35-year-old AA male. Date of admission 05/09/2016. Past medical history includes migraine induced seizure disorder, status post craniotomy secondary to AVM in remote past, hypertension. Girlfriend states patient is compliant with medications. Patient presents to [facility] with seizure activity since at least 10 AM this morning. Patient does have history of craniotomy secondary to AVM secondary to a left-sided CVA in the remote past. He is said several seizures most recently June and November 2015 both of which required intubation. Usually the seizure brought by stressors. Yesterday , patient did have an alcoholic beverage which is unusual for him. Patient was complaining of a headache as of 6:30 this am. His girlfriend found the patient he was actively seizing. Patient received Ativan in route continue to intimately cc 5 times ED. Patient received 1200 mg Depakote IV after discussion with neurology. Patient was intubated with 130 mg succinylcholine 30 mg etomidate for airway protection. CT head revealed rights parietal/ temporal encephalomalacia but no other acute findings. Patient is currently admitted to propofol drip at 30 mics per kilogram per minute. 2 external jugular vein catheters and one peripheral IV was placed. We are asked to admit. Subjective: 03/09: Afebrile. No acute issues overnight. Depakote levels pending per neurology's recommendation. Plan for CPAP trials today with possible extubation. Objective Vital Signs Date Time Temp Pulse Resp B/P Pulse Ox O2 Delivery O2 Flow Rate FiO2 05/10/16 11:27 100 30 05/10/16 08:00 66 05/10/16 08:00 98.7 20 121/58 05/09/16 13:30 Ventilator 05/09/16 11:08 3 Intake and Output 05/09/16 05/09/16 05/10/16 08:00 16:00 00:00 Intake Total 203 ml 941 ml Output Total 100 ml 565 ml Balance 103 ml 376 ml Result Diagram: 05/10/16 0450 05/10/16 0450 Imaging Last Impressions Head CT 05/09/16 0000 Signed Impressions: Service Date/Time: Monday, May 09, 2016 10:59 - CONCLUSION: 1. No evidence of acute intracranial abnormality. 2. Previous right craniotomy. Unchanged encephalomalacia of the right parietal lobe. Mitchell Morales MD Chest X-Ray 05/09/16 0000 Signed Impressions: Service Date/Time: Monday, May 09, 2016 12:13 - CONCLUSION: No significant change mild airspace opacities on the left. Endotracheal tube tip is about 2.6 cm above the gerald. Mitchell Morales MD Objective Remarks GENERAL: 35-year-old male, critically ill currently resting bed in no acute distress SKIN: Warm and dry. No rash HEAD: Atraumatic. Normocephalic. EYES: Pupils equal and round about 3 mm bilaterally and reactive. No scleral icterus. No injection or drainage. ENT: No nasal bleeding or discharge. Mucous membranes pink and moist. NECK: Trachea midline. No JVD. CARDIOVASCULAR: Regular rate and rhythm. S1, S2. No S4. Without murmur RESPIRATORY:. Clear to auscultation. Breath sounds equal bilaterally. GASTROINTESTINAL: Abdomen soft, non-tender, nondistended. Hypoactive bowel sounds are appreciated MUSCULOSKELETAL: Extremities without clubbing, cyanosis, or edema. No obvious deformities. NEUROLOGICAL: Withdraws to pain in all 4 extremities. Positive gag. Positive corneal reflex. 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 These been resumed at 20 mg IV twice a day Vimpat and 50 mg Keppra twice a day Loaded with Depakote in ED approximately 1200 mg. Currently on 500 mg 3 times a day. Depakote level 70 therapuetic, Keppra level pending EEG-results pending MRI ordered. Dr. Gupta - Neurology following Will hold propofol/Versed drips for sedation/analgesia for CPAP trials with possible extubation Goal of RASS -2 Daily sedation vacation MRI 07/27 revealed cephalization right-sided parietal lobe probably from prior AVM with gliosis CT head this admission revealed similar findings right-sided parietal lobe encephalomalacia's CV: History of hypertension Currently normal saline at 84 cc now. Home antihypertensive medications held. Will resume when clinically indicated As needed labetalol/hydralazine/Nitropaste is systolic blood pressure greater than 160 Resp: Acute respiratory failure secondary to altered mental status ACV 14/500/5/.40 Ventilator bundle As needed bronchodilator therapy Spontaneous breathing trials daily Chest x-ray reveals no significant cardiopulmonary findings. Begin CPAP trials SBT parameters-TV 650 RR 12 RSBI 18 NIF -19, + cuff leak- plan to extubate GI: Enteral feedings with Jevity 1.5 goal 55 cc an hour on hold for possible extubation Protonix for GI prophylaxis Colace/as needed Senokot for bowel regimen Liver function tests pending : Antonio will be placed for accurate I's and O's in a critically ill patient Endo: Hyperglycemia Sliding-scale insulin with Accu-Cheks to maintain euglycemia/low regimen/every 6 hours Renal: Creatinine currently within normal limits. Monitor BMP Heme: CBC within normal limits. Continue to monitor ID: Monitor for infection FEN: Replace electrolytes as clinically indicated using ICU A protocol MSK: PT evaluate and treat Access - Utilize peripheral IV. Central line if indicated Prophylaxis - GI - Protonix - DVT - SCD/pharmacological prophylaxis currently held in light of seizure activity. Resume heparin BID SQ Discussed with NURSES SUPERINTENDENT at bedside. Critical Care: The total critical care time was 31 minutes. Time to perform other separately billable procedures was not included in the critical care time. Physician Belinda Vizcarra MD May 10, 2016 14:07
[2016-05-10] MEDS: LORazepam 2 MG/ML VIAL IV PRN (20:05)
[2016-05-11] VITALS (11 sets, daily range): BP systolic 133–153; BP diastolic 66–83; PULSE 50–90; RESP 16–21; TEMP 97.6–98.8; O2SAT 97–100
[2016-05-11] MEDS: HEPARIN SODIUM - SQ 10,000 UNITS/ML VIAL SQ SCH ×3 (00:05→22:11)
[2016-05-11] MEDS: SODIUM CHLOR 0.9% 1000 ML INJ 1,000 ML IV SCH (00:07)
[2016-05-11] MEDS: levETIRAcetam INJ 1,500 MG in SODIUM CHLORIDE 0.9% INJ 100 ML IV SCH ×3 (00:07→22:10)
[2016-05-11] MEDS: VALPROATE INJ 500 MG in SODIUM CHLORIDE 0.9% INJ 100 ML IV SCH ×3 (02:46→18:00)
[2016-05-11] MEDS: CHLORHEXIDINE GLUCONATE 2 % 1 PACK (2 CLOTHS)(taper/protocol) TOP SCH (02:46)
[2016-05-11] MEDS: INSULIN NovoLIN REGULAR SUPPLEMENTAL SCALE SQ SCH ×5 (06:00→23:55)
[2016-05-11 06:12] LABS: HEMATOCRIT 36.1 % (39.0-51.0); MEAN CELL VOLUME 91.1 FL (80.0-100.0); MEAN CORPUSCULAR HEMOGLOBIN 31.7 PG (27.0-34.0); MEAN CORPUSCULAR HGB CONC 34.8 % (32.0-36.0); PLATELET COUNT 128 TH/MM3 (150-450); RED BLOOD COUNT 3.96 MIL/MM3 (4.50-5.90); RED CELL DISTRIBUTION WIDTH 12.7 % (11.6-17.2); REVIEW FLAG FINAL
[2016-05-11 06:39] LABS: BICARBONATE 26.3 MEQ/L (21.0-32.0); MAGNESIUM 2.1 MG/DL (1.5-2.5); POTASSIUM 3.6 MEQ/L (3.5-5.1)
[2016-05-11] MEDS: CHLORHEXIDINE 0.12% (ORAL KIT) 15 ML CUP MT SCH (08:00)
[2016-05-11] MEDS: ARTIFICIAL TEARS OPTH SOLN 15 ML BTL EACH EYE SCH ×2 (09:00→13:00)
[2016-05-11] MEDS: JUVEN POWDER 1 PACK G-TUBE SCH (09:00)
--- NOTE | 2016-05-11 09:04 | HHI.CCPN ---
Subjective Remarks/Hospital Course This is a 35-year-old AA male. Date of admission 05/09/2016. Past medical history includes migraine induced seizure disorder, status post craniotomy secondary to AVM in remote past, hypertension. Girlfriend states patient is compliant with medications. Patient presents to [facility] with seizure activity since at least 10 AM this morning. Patient does have history of craniotomy secondary to AVM secondary to a left-sided CVA in the remote past. He is said several seizures most recently June and November 2015 both of which required intubation. Usually the seizure brought by stressors. Yesterday , patient did have an alcoholic beverage which is unusual for him. Patient was complaining of a headache as of 6:30 this am. His girlfriend found the patient he was actively seizing. Patient received Ativan in route continue to intimately cc 5 times ED. Patient received 1200 mg Depakote IV after discussion with neurology. Patient was intubated with 130 mg succinylcholine 30 mg etomidate for airway protection. CT head revealed rights parietal/ temporal encephalomalacia but no other acute findings. Patient is currently admitted to propofol drip at 30 mics per kilogram per minute. 2 external jugular vein catheters and one peripheral IV was placed. We are asked to admit. Subjective: 03/09: Afebrile. No acute issues overnight. Depakote levels pending per neurology's recommendation. Plan for CPAP trials today with possible extubation. 03/10:The patient was extubated yesterday afternoon uneventful. The patient has been weaned off O2 via nasal cannula. Tolerating liquids. Will begin regular diet. Objective Vital Signs Date Time Temp Pulse Resp B/P Pulse Ox O2 Delivery O2 Flow Rate FiO2 05/11/16 06:00 71 05/11/16 04:00 98.3 21 133/66 98 05/10/16 20:16 21 05/10/16 16:04 Room Air 05/09/16 11:08 3 Intake and Output 05/10/16 05/10/16 05/11/16 08:00 16:00 00:00 Intake Total 1308 ml 975 ml Output Total 1550 ml 950 ml Balance -242 ml 25 ml Result Diagram: 05/11/16 0520 05/11/16 0520 Imaging Last Impressions Head CT 05/09/16 0000 Signed Impressions: Service Date/Time: Monday, May 09, 2016 10:59 - CONCLUSION: 1. No evidence of acute intracranial abnormality. 2. Previous right craniotomy. Unchanged encephalomalacia of the right parietal lobe. Mitchell Morales MD Chest X-Ray 05/09/16 0000 Signed Impressions: Service Date/Time: Monday, May 09, 2016 12:13 - CONCLUSION: No significant change mild airspace opacities on the left. Endotracheal tube tip is about 2.6 cm above the gerald. Mitchell Morales MD Objective Remarks GENERAL: 35-year-old male,resting comfortably in bed in no acute distress SKIN: Warm and dry. No rash HEAD: Atraumatic. Normocephalic. EYES: Pupils equal and round about 3 mm bilaterally and reactive. No scleral icterus. No injection or drainage. ENT: No nasal bleeding or discharge. Mucous membranes pink and moist. NECK: Trachea midline. No JVD. CARDIOVASCULAR: Regular rate and rhythm. S1, S2. No S4. Without murmur RESPIRATORY:. Clear to auscultation. Breath sounds equal bilaterally. GASTROINTESTINAL: Abdomen soft, non-tender, nondistended. Hypoactive bowel sounds are appreciated MUSCULOSKELETAL: Extremities without clubbing, cyanosis, or edema. No obvious deformities. 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 Continued at 20 mg IV twice a day Vimpat and 50 mg Keppra twice a day Loaded with Depakote in ED approximately 1200 mg. Currently on 500 mg 3 times a day. Depakote level 70 therapuetic, Keppra level pending EEG-results pending Dr. Gupta - Neurology following MRI 07/27 revealed cephalization right-sided parietal lobe probably from prior AVM with gliosis CT head this admission revealed similar findings right-sided parietal lobe encephalomalacia's CV: History of hypertension Currently normal saline at 84 cc now. Home antihypertensive medications will be resumed today As needed labetalol/hydralazine/Nitropaste is systolic blood pressure greater than 160 Resp: Acute respiratory failure secondary to altered mental status Room air O2 sat 97% As needed bronchodilator therapy Begin incentive spirometry GI: Begin regular diet Protonix for GI prophylaxis Colace/as needed Senokot for bowel regimen Liver function tests the normal limits : Antonio will be discontinued Endo: Hyperglycemia Sliding-scale insulin with Accu-Cheks to maintain euglycemia/low regimen/every 6 hours Renal: Creatinine currently within normal limits. Monitor BMP Heme: CBC within normal limits. Continue to monitor ID: Monitor for infection FEN: Replace electrolytes as clinically indicated MSK: PT evaluate and treat/out of bed Access - Utilize peripheral IV. Central line if indicated Prophylaxis - GI - Protonix - DVT - SCD/ heparin BID SQ Discussed with CUFF SETTER LOCKSTITCH at bedside. Critical Care: Level 2 Plan to transfer to hospitalist, transfer to neuro floor. Physician Belinda Vizcarra MD May 11, 2016 09:04
[2016-05-11] MEDS ORDERED: VERAPAMIL HCL 120 MG TAB PO SCH (09:15)
[2016-05-11] MEDS: PANTOPRAZOLE SODIUM 40 MG VIAL IV SCH (09:27)
[2016-05-11] MEDS: LACOSAMIDE INJ 200 MG in SODIUM CHLORIDE 0.9% INJ 100 ML IV SCH ×2 (09:28→22:10)
[2016-05-11] MEDS: SODIUM CHLORIDE 0.9% FLUSH 5 ML FLUSH IV FLUSH SCH ×2 (09:28→22:11)
[2016-05-11] MEDS: DOCUSATE SODIUM 100 MG CAP PO SCH ×2 (09:28→22:21)
[2016-05-12 01:04] VITALS: BP 110/64; PULSE 76; RESP 16; TEMP 97.6; O2SAT 97
[2016-05-12] MEDS: VALPROATE INJ 500 MG in SODIUM CHLORIDE 0.9% INJ 100 ML IV SCH ×2 (01:55→09:04)
[2016-05-12] MEDS: CHLORHEXIDINE GLUCONATE 2 % 1 PACK (2 CLOTHS)(taper/protocol) TOP SCH (04:50)
[2016-05-12 05:30] VITALS: BP 131/89; PULSE 74; RESP 16; TEMP 97.5; O2SAT 99
[2016-05-12] MEDS: INSULIN NovoLIN REGULAR SUPPLEMENTAL SCALE SQ SCH (06:00)
[2016-05-12 08:00] VITALS: BP 142/73; PULSE 60; RESP 16; TEMP 97.8; O2SAT 100
[2016-05-12] MEDS ORDERED: VERAPAMIL HCL 240 MG SUSTAINED RELEASE TAB PO SCH (09:00)
[2016-05-12] MEDS: levETIRAcetam INJ 1,500 MG in SODIUM CHLORIDE 0.9% INJ 100 ML IV SCH (09:01)
[2016-05-12] MEDS: LACOSAMIDE INJ 200 MG in SODIUM CHLORIDE 0.9% INJ 100 ML IV SCH (09:02)
[2016-05-12] MEDS: PANTOPRAZOLE SODIUM 40 MG VIAL IV SCH (09:03)
[2016-05-12] MEDS: SODIUM CHLORIDE 0.9% FLUSH 5 ML FLUSH IV FLUSH SCH (09:03)
[2016-05-12] MEDS: DOCUSATE SODIUM 100 MG CAP PO SCH (09:03)
[2016-05-12] MEDS: HEPARIN SODIUM - SQ 10,000 UNITS/ML VIAL SQ SCH (09:03)
[2016-05-12] MEDS: LORazepam 2 MG/ML VIAL IV PRN (09:28)
[2016-05-12 09:52] LABS: BICARBONATE 28.5 MEQ/L (21.0-32.0); MAGNESIUM 2.2 MG/DL (1.5-2.5); POTASSIUM 3.4 MEQ/L (3.5-5.1)
--- NOTE | 2016-05-12 10:59 | HHI.PR ---
Subjective Remarks resting comfortably with no distress. no seizures or any other complaints. wants to go home today. Objective Vitals Vital Signs Date Time Temp Pulse Resp B/P Pulse Ox O2 Delivery O2 Flow Rate FiO2 05/12/16 08:00 97.8 60 16 142/73 100 05/12/16 05:30 97.5 74 16 131/89 99 05/12/16 01:04 97.6 76 16 110/64 97 05/11/16 22:00 50 05/11/16 20:36 97.6 76 18 153/83 97 05/11/16 16:00 98.1 90 20 153/69 98 05/11/16 12:00 98.5 73 18 143/74 100 I/O 05/11/16 05/11/16 05/11/16 05/12/16 05/12/16 05/12/16 07:00 15:00 23:00 07:00 15:00 23:00 Intake Total 991 ml 960 ml Output Total 875 ml 800 ml Balance 116 ml 160 ml Intake Oral 960 ml IV Total 991 ml Output Urine Total 875 ml 800 ml # Voids 2 # Bowel Movements 0 Result Diagram: 05/11/16 0520 05/12/16 0800 Imaging Last Impressions Head CT 05/09/16 0000 Signed Impressions: Service Date/Time: Monday, May 09, 2016 10:59 - CONCLUSION: 1. No evidence of acute intracranial abnormality. 2. Previous right craniotomy. Unchanged encephalomalacia of the right parietal lobe. Mitchell Morales MD Chest X-Ray 05/09/16 0000 Signed Impressions: Service Date/Time: Monday, May 09, 2016 12:13 - CONCLUSION: No significant change mild airspace opacities on the left. Endotracheal tube tip is about 2.6 cm above the gerald. Mitchell Morales MD Brain MRI 05/09/16 0000 Signed Impressions: Service Date/Time: Monday, May 09, 2016 14:12 - CONCLUSION: 1. No bleed , acute infarct or other acute intracranial abnormality. 2. Surgical changes of the right parietal lobe again noted. Mitchell Morales MD Objective Remarks GENERAL: This is a well-nourished, well-developed patient, in no apparent distress. CARDIOVASCULAR: Regular rate and regular rhythm without murmurs, gallops, or rubs. RESPIRATORY: Clear to auscultation. Breath sounds equal bilaterally. No wheezes , rales, or rhonchi. GASTROINTESTINAL: Abdomen soft, non-tender, nondistended. Normal, active bowel sounds MUSCULOSKELETAL: Extremities without clubbing, cyanosis, or edema. NEURO: Alert & Oriented x4 to person, place, time, situation. Moves all ext x4 Procedures endotracheal intubation. Medications and IVs Current Medications Lorazepam (Ativan Inj) 2 mg STK-MED ONCE .ROUTE ; Start 05/09/16 at 10:43; Stop 05/09/16 at 10:44; Status DC Lorazepam (Ativan Inj) 2 mg STK-MED ONCE .ROUTE Last administered on 05/09/16 11:14; Start 05/09/16 at 10:49; Stop 05/09/16 at 10:50; Status DC Lorazepam 2 mg 2 mg ONCE ONCE IV PUSH Last administered on 05/09/16 11:08; Start 05/09/16 at 11:00; Stop 05/09/16 at 11:01; Status DC Valproate Sodium/ Sodium Chloride (Depacon Inj/NS Inj) 112 ml @ 105 mls/hr ONCE ONCE IV Last administered on 05/09/16 11:55; Start 05/09/16 at 11:30; Stop 05/09/16 at 12:33; Status DC Etomidate (Amidate Inj) 40 mg STK-MED ONCE .ROUTE ; Start 05/09/16 at 11:35; Stop 05/09/16 at 11:36; Status DC Succinylcholine Chloride 200 mg 200 mg STK-MED ONCE .ROUTE ; Start 05/09/16 at 11:35; Stop 05/09/16 at 11:36; Status DC Propofol 100 ml @ As Directed STK-MED ONCE .ROUTE ; Start 05/09/16 at 11:41; Stop 05/09/16 at 11:42; Status DC Propofol (Diprivan 1000 Mg/100ml Inj) 100 ml @ 0 mls/hr TITRATE IV Last administered on 05/10/16 06:24; Start 05/09/16 at 12:00; Stop 05/11/16 at 08:48 ; Status DC Etomidate (Amidate Inj) 30 mg ONCE ONCE IV PUSH Last administered on 12:13; Start 05/09/16 at 12:15; Stop 05/09/16 at 12:16; Status DC Succinylcholine Chloride 130 mg 130 mg ONCE ONCE IV PUSH Last administered on 05/09/16 12:14; Start 05/09/16 at 12:15; Stop 05/09/16 at 12:16; Status DC Lacosamide 200 mg/ Sodium Chloride 120 ml @ 120 mls/hr Q12HR IV Last administered on 05/12/16 09:02; Start 05/09/16 at 21:00 Levetriacetam 100 ml @ 400 mls/hr Q12HR IV ; Start 05/09/16 at 21:00; Stop at 21:00; Status DC Levetriacetam 500 mg/Sodium Chloride 105 ml @ 420 mls/hr Q12HR IV ; Start 05/09 at 21:00; Stop 05/09/16 at 21:00; Status DC Levetriacetam 100 ml @ 400 mls/hr BOLUS ONCE IV Last administered on 12:55; Start 05/09/16 at 12:30; Stop 05/09/16 at 12:44; Status DC Valproate Sodium 500 mg/Sodium Chloride 105 ml @ 105 mls/hr Q8H IV Last administered on 05/11/16 02:46; Start 05/09/16 at 18:00 Sodium Chloride (NS 1000 ml Inj) 1,000 ml @ 84 mls/hr [id number] IV Last administered on 05/11/16 00:07; Start 05/09/16 at 13:00; Stop 05/11/16 at 08:49 ; Status DC IV Flush (NS Flush) 2 ml UNSCH PRN IV FLUSH FLUSH AFTER USING IV ACCESS; Start 05/09/16 at 12:45 IV Flush (NS Flush) 2 ml BID IV FLUSH Last administered on 05/12/16 09:03; Start 05/09/16 at 21:00 Acetaminophen (Tylenol) 650 mg Q6H PRN PO PAIN 1-10 AND/OR FEVER >101F; Start 05/09/16 at 12:45 Pantoprazole Sodium (Protonix Inj) 40 mg DAILY IV Last administered on 09:03; Start 05/10/16 at 09:00 Lorazepam (Ativan Inj) 1 mg Q1H PRN IV Agitation/Sedation Last administered on 05/12/16 09:28; Start 05/09/16 at 12:45 Artificial Tears (Tears Naturale Opth Soln) 1 drop TID EACH EYE ; Start at 13:00; Stop 05/11/16 at 17:28; Status DC Ondansetron HCl (Zofran Inj) 4 mg Q6H PRN IV NAUSEA OR VOMITING; Start at 12:45 Docusate Sodium (Colace) 100 mg BID PO Last administered on 05/12/16 09:03; Start 05/09/16 at 21:00 Sennosides (Senna Liq) 17.6 mg Q12H PRN G-TUBE CONSTIPATION; Start 05/09/16 at 12:45 Albuterol/ Ipratropium (Duoneb Neb) 1 ampule Q2HR NEB PRN INH WHEEZING; Start 05/09/16 at 12:45 Miscellaneous Information 1 Q361D XX ; Start 05/09/16 at 12:45; Stop 05/09/16 at 15:12; Status DC Chlorhexidine Gluconate (Chlorhexidine 2% Cloth) 3 pack Taper DAILY@04 TOP ; Start 05/10/16 at 04:00; Stop 05/10/16 at 04:00; Status DC Chlorhexidine Gluconate 3 pack 3 pack UNSCH PRN TOP HYGIENIC CARE; Start at 12:45; Stop 05/09/16 at 15:12; Status DC Propofol 100 ml @ 0 mls/hr TITRATE IV ; Start 05/09/16 at 12:45; Stop 05/09/16 at 12:54; Status DC Midazolam HCl 100 ml @ 0 mls/hr TITRATE IV Last administered on 05/10/16 01:20 ; Start 05/09/16 at 12:45; Stop 05/11/16 at 08:49; Status DC Potassium Chloride 100 ml @ 50 mls/hr Q2H PRN IV For Potassium 2.8 - 3.2 mEq/L ; Start 05/09/16 at 12:45; Stop 05/11/16 at 18:37; Status DC Potassium Chloride (KCl 20 Meq Premix Inj) 100 ml @ 50 mls/hr Q2H PRN IV For Potassium 2.8 - 3.2 mEq/L; Start 05/09/16 at 12:45; Stop 05/11/16 at 18:37; Status DC Potassium Chloride 40 meq 40 meq UNSCH PRN PO/TUBE For Potassium 3.3 - 3.5 mEq/ L; Start 05/09/16 at 12:45; Stop 05/11/16 at 18:37; Status DC Potassium Chloride 100 ml @ 25 mls/hr UNSCH PRN IV For Potassium 3.3 - 3.5 mEq /L; Start 05/09/16 at 12:45; Stop 05/11/16 at 18:34; Status DC Potassium Chloride 100 ml @ 50 mls/hr Q2H PRN IV For Potassium 3.3 - 3.5 mEq/L ; Start 05/09/16 at 12:45; Stop 05/11/16 at 18:37; Status DC Magnesium Sulfate/ Sodium Chloride (Magnesium Sulfate Inj/NS Inj) 100 ml @ 50 mls/hr UNSCH PRN IV For Magnesium 0.9 - 1.1 mg/dL; Start 05/09/16 at 12:45; Stop 05/11/16 at 18:34; Status DC Magnesium Oxide 800 mg 800 mg UNSCH PRN PO For Magnesium 1.2 - 1.6 mg/dL; Start 05/09/16 at 12:45; Stop 05/11/16 at 18:37; Status DC Magnesium Sulfate/ Sodium Chloride (Magnesium Sulfate Inj/NS Inj) 100 ml @ 50 mls/hr UNSCH PRN IV For Magnesium 1.2 - 1.6 mg/dL; Start 05/09/16 at 12:45; Stop 05/11/16 at 18:34; Status DC Potassium Phosphate 2000 mg 2,000 mg Q4H PRN PO For Phosphorus < 2.5 mg/dL; Start 05/09/16 at 12:45; Stop 05/11/16 at 18:37; Status DC Sodium Phosphate/ Sodium Chloride (Sodium Phosphate Inj/NS 250 ml Inj) 250 ml @ 42 mls/hr UNSCH PRN IV For Phosphorus < 2.5 mg/dL; Start 05/09/16 at 12:45; Stop 05/11/16 at 17:26; Status DC Potassium Chloride (KCl 40 Meq/30 ml Liq) 40 meq UNSCH PRN PO/TUBE SEE LABEL COMMENTS; Start 05/09/16 at 12:45; Stop 05/11/16 at 18:37; Status DC Potassium Phosphate 2000 mg 2,000 mg UNSCH PRN PO/TUBE SEE LABEL COMMENTS; Start 05/09/16 at 12:45; Stop 05/11/16 at 18:37; Status DC Potassium Phosphate/Sodium Chloride (Potassium Phosphate Inj/NS 250 ml Inj) 260 ml @ 42 mls/hr UNSCH PRN IV SEE LABEL COMMENTS; Start 05/09/16 at 12:45; Stop 05/11/16 at 18:34; Status DC Chlorhexidine Gluconate (Peridex 0.12% Liq) 15 ml BID@08,20 MT Last administered on 05/10/16 20:00; Start 05/09/16 at 20:00; Stop 05/11/16 at 17:28 ; Status DC Dextrose (D50w (Vial) Inj) 25 ml UNSCH PRN IV PUSH HYPOGLYCEMIA-SEE COMMENTS Last administered on 05/09/16 20:09; Start 05/09/16 at 12:45 Glucagon (Glucagon Inj) 1 mg UNSCH PRN OTHER HYPOGLYCEMIA-SEE COMMENTS; Start 05/09/16 at 12:45 Insulin Human Regular (NovoLIN R SUPPLEMENTAL SCALE) 1 Q6HR SQ Last administered on 05/11/16 18:00; Start 05/09/16 at 18:00 Arginine HCl 1 pack 1 pack BID G-TUBE ; Start 05/09/16 at 21:00; Stop 05/11/16 at 17:28; Status DC Levetriacetam/ Sodium Chloride (Keppra Inj/NS Inj) 115 ml @ 460 mls/hr Q12HR IV Last administered on 05/10/16 09:13; Start 05/09/16 at 21:00; Stop at 14:29; Status DC Labetalol HCl (Trandate Inj) 10 mg Q1HR PRN IV PUSH SBP>160, DBP>90, HR>65; Start 05/09/16 at 13:15; Stop 05/11/16 at 18:39; Status DC Nitroglycerin (Nitroglycerin 2% Oint) 2 inch Q6HR PRN TOPICAL SBP>160, DBP>90; Start 05/09/16 at 13:15 Hydralazine HCl 10 mg 10 mg Q1HR PRN IV PUSH SBP>160, DBP>90; Start 05/09/16 at 13:15; Stop 05/11/16 at 18:34; Status DC Midazolam HCl (Versed Inj) 100 ml @ As Directed STK-MED ONCE .ROUTE ; Start at 13:48; Stop 05/09/16 at 13:49; Status DC Miscellaneous Information Patient in critical care unit? Ass... Q361D XX Last administered on 05/09/16 15:15; Start 05/09/16 at 15:15 Chlorhexidine Gluconate (Chlorhexidine 2% Cloth) 3 pack DAILY@04 TOP Last administered on 05/11/16 02:46; Start 05/10/16 at 04:00; Stop 05/14/16 at 04:01 Chlorhexidine Gluconate (Chlorhexidine 2% Cloth) 3 pack UNSCH PRN TOP HYGIENIC CARE; Start 05/09/16 at 15:15; Stop 05/14/16 at 15:11 Heparin Sodium (Porcine) 5000 units 5,000 units Q12HR SQ Last administered on 09:03; Start 05/10/16 at 21:00 Levetriacetam/ Sodium Chloride (Keppra Inj/NS Inj) 115 ml @ 460 mls/hr Q12HR IV Last administered on 05/12/16 09:01; Start 05/10/16 at 21:00 Verapamil HCl (Isoptin) 240 mg DAILY PO Last administered on 05/11/16 10:52; Start 05/11/16 at 09:15; Stop 05/11/16 at 17:17; Status DC Verapamil HCl (Isoptin Sr) 240 mg DAILY PO Last administered on 05/12/16 09:03 ; Start 05/12/16 at 09:00 Date of Insertion: May 09, 2016 A/P Assessment and Plan A/P Status epilepticus-resolved History of AVMs status post clipping with concurrent left-sided weakness History seizures 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 Continued at 20 mg IV twice a day Vimpat and 50 mg Keppra twice a day Loaded with Depakote in ED approximately 1200 mg. Currently on 500 mg 3 times a day. Depakote level 70 therapuetic, Keppra level 19.8. EEG with no epileptiform activity. Dr. Gupta - Neurology following MRI 07/27 revealed cephalization right-sided parietal lobe probably from prior AVM with gliosis CT head this admission revealed similar findings right-sided parietal lobe encephalomalacia's History of hypertension Home antihypertensive medications resumed Acute respiratory failure secondary to altered mental status- s/p intubation/ extubation- now stable Room air O2 sat 97% As needed bronchodilator therapy incentive spirometry Prophylaxis - GI - Protonix - DVT - SCD/ heparin BID SQ Discharge Planning possible dc home later today if ok with neurology. see med list. f/u; pcp and neurology. d/w the patient. Jesu Bailey MD May 12, 2016 10:59
[2016-05-12] MEDS ORDERED: VALP250C PO (11:02)
--- NOTE | 2016-05-12 11:04 | HHI.DCPOC ---
Discharge Care Plan Diagnosis: (1) Status epilepticus Additional Problems seizure. Goals to Promote Your Health * To prevent worsening of your condition and complications * To maintain your health at the optimal level Directions to Meet Your Goals Take your medications as prescribed Follow your dietary instruction Follow activity as directed Keep your appointments as scheduled Take your immunizations and boosters as scheduled If your symptoms worsen call your PCP, if no PCP go to Urgent Care Center or Emergency Room Smoking is Dangerous to Your Health. Avoid second hand smoke Call the 24-hour hour crisis hotline for domestic abuse at Jesu Bailey MD May 12, 2016 11:04
--- NOTE | 2016-05-12 11:05 | HHI.DS ---
Discharge Summary Admission Date May 09, 2016 at 12:04 Discharge Date: May 12, 2016 Admitting Diagnosis status epilepticus (1) Cannabis use, unspecified, uncomplicated ICD Code: F12.90 Diagnosis: Principal (2) Anxiety disorder, unspecified ICD Code: F41.9 Diagnosis: Principal (3) Status epilepticus ICD Code: G40.901 Diagnosis: Principal (4) Acute respiratory failure ICD Code: J96.00 Diagnosis: Principal (5) History of arteriovenous malformation (AVM) ICD Code: Z87.74 Diagnosis: Principal (6) Hypertension ICD Code: I10 Diagnosis: Principal Procedures endotracheal intubation. Brief History - From Admission This is a 35-year-old AA male. Date of admission 05/09/2016. Past medical history includes migraine induced seizure disorder, status post craniotomy secondary to AVM in remote past, hypertension. Girlfriend states patient is compliant with medications. Patient presents to [facility] with seizure activity since at least 10 AM this morning. Patient does have history of craniotomy secondary to AVM secondary to a left-sided CVA in the remote past. He is said several seizures most recently June and November 2015 both of which required intubation. Usually the seizure brought by stressors. Yesterday , patient did have an alcoholic beverage which is unusual for him. Patient was complaining of a headache as of 6:30 this am. His girlfriend found the patient he was actively seizing. Patient received Ativan in route continue to [facility] 5 times ED. Patient received 1200 mg Depakote IV after discussion with neurology. Patient was intubated with 130 mg succinylcholine 30 mg etomidate for airway protection. CT head revealed rights parietal/ temporal encephalomalacia but no other acute findings. Patient is currently admitted to propofol drip at 30 mics per kilogram per minute. 2 external jugular vein catheters and one peripheral IV was placed. We are asked to admit. CBC/BMP: 05/11/16 0520 05/12/16 0800 Significant Findings Laboratory Tests Test 05/09/16 05/09/16 05/09/16 05/10/16 12:18 12:40 13:41 04:50 Arterial Blood Partial 184 mmHG Pressure O2 (61-120) Arterial Blood Oxygen Content 20.4 Vol % (12.0-20.0) Arterial Blood Methemoglobin 2.4 % (0-2) Lactic Acid Level 2.4 mmol/L (0.4-2.0) Urine Cannabinoids Screen POS (NEG) Ammonia 58 MCMOL/L (11-32) Red Blood Count 4.31 MIL/MM3 (4.50-5.90) Platelet Count 147 TH/MM3 (150-450) Monocytes (%) (Auto) 8.6 % (0.0-8.0) Chloride Level 109 MEQ/L (98-107) Total Protein 6.0 GM/DL (6.4-8.2) Albumin 3.3 GM/DL (3.4-5.0) Test 05/11/16 05/12/16 05:20 08:00 Red Blood Count 3.96 MIL/MM3 (4.50-5.90) Hemoglobin 12.6 GM/DL (13.0-17.0) Hematocrit 36.1 % (39.0-51.0) Platelet Count 128 TH/MM3 (150-450) Chloride Level 108 MEQ/L (98-107) Calcium Level 8.2 MG/DL (8.5-10.1) Potassium Level 3.4 MEQ/L (3.5-5.1) Imaging Last Impressions Head CT 05/09/16 0000 Signed Impressions: Service Date/Time: Monday, May 09, 2016 10:59 - CONCLUSION: 1. No evidence of acute intracranial abnormality. 2. Previous right craniotomy. Unchanged encephalomalacia of the right parietal lobe. Mitchell Morales MD Chest X-Ray 05/09/16 0000 Signed Impressions: Service Date/Time: Monday, May 09, 2016 12:13 - CONCLUSION: No significant change mild airspace opacities on the left. Endotracheal tube tip is about 2.6 cm above the gerald. Mitchell Morales MD Brain MRI 05/09/16 0000 Signed Impressions: Service Date/Time: Monday, May 09, 2016 14:12 - CONCLUSION: 1. No bleed , acute infarct or other acute intracranial abnormality. 2. Surgical changes of the right parietal lobe again noted. Mitchell Morales MD PE at Discharge GENERAL: This is a well-nourished, well-developed patient, in no apparent distress. CARDIOVASCULAR: Regular rate and regular rhythm without murmurs, gallops, or rubs. RESPIRATORY: Clear to auscultation. Breath sounds equal bilaterally. No wheezes , rales, or rhonchi. GASTROINTESTINAL: Abdomen soft, non-tender, nondistended. Normal, active bowel sounds MUSCULOSKELETAL: Extremities without clubbing, cyanosis, or edema. NEURO: Alert & Oriented x4 to person, place, time, situation. 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 Continued at 20 mg IV twice a day Vimpat and 50 mg Keppra twice a day Loaded with Depakote in ED approximately 1200 mg. Currently on 500 mg 3 times a day. Depakote level 70 therapuetic, Keppra level 19.8. EEG with no epileptiform activity. Dr. Gupta - Neurology following MRI 07/27 revealed cephalization right-sided parietal lobe probably from prior AVM with gliosis CT head this admission revealed similar findings right-sided parietal lobe encephalomalacia's History of hypertension Home antihypertensive medications resumed Acute respiratory failure secondary to altered mental status- s/p intubation/ extubation- now stable Room air O2 sat 97% As needed bronchodilator therapy incentive spirometry Prophylaxis - GI - Protonix - DVT - SCD/ heparin BID SQ Pt Condition on Discharge: Good Discharge Disposition: Discharge Home Discharge Time: <= 30 minutes Discharge Instructions DIET: Follow Instructions for: Heart Healthy Diet Activities you can perform: Regular-No Restrictions Activities to Avoid: Driving Follow up Referrals: Neurology PCP Follow-up New Medications: Valproic Acid (Valproic Acid) 250 Mg Cap 500 MG PO TID seizure Days 30 Ref 0 CAP Continued Medications: Lacosamide (Vimpat) 50 Mg Tab 200 PO BID Control Seizures #60 Ref 0 TAB Levetiracetam (Keppra) 1,000 Mg Tab 1000 MG PO Q8HR Control Seizures #60 Ref 0 TAB Verapamil (Verapamil) 120 Mg Tab 240 MG PO DAILY #60 Ref 0 TAB Jesu Bailey MD May 12, 2016 11:05
[2016-05-12] MEDS ORDERED: POTASSIUM CHLORIDE 20 MEQ CONTROLLED RELEASE TAB PO ONE (11:15)
== END 2016-05-12 13:32 | disposition home or self-care (01) | DRG 100 ==
LOC: NEPC 10:35 → NEDA 12:04 → HIMN 14:44 → N05B 05-11 18:58 → N05A 05-11 20:42
PROVIDERS: ADMIT Internal Medicine; ATTEND Internal Medicine
PROC: 5A1935Z Respiratory Ventilation, Less than 24 Consecutive Hours (ICD-10-PCS; principal; 2016-05-09)
PROC: 0BH17EZ Insertion of Endotracheal Airway into Trachea, Via Natural or Artificial Opening (ICD-10-PCS; 2016-05-09)
PROC: 0T9B70Z Drainage of Bladder with Drainage Device, Via Natural or Artificial Opening (ICD-10-PCS; 2016-05-09)
PROC: 0D9670Z Drainage of Stomach with Drainage Device, Via Natural or Artificial Opening (ICD-10-PCS; 2016-05-09)
DX: G40.901 Epilepsy, unspecified, not intractable, with status epilepticus (principal); J96.00 Acute respiratory failure, unspecified whether with hypoxia or hypercapnia; F41.9 Anxiety disorder, unspecified; Z86.73 Personal history of transient ischemic attack (TIA), and cerebral infarction without residual deficits; I10 Essential (primary) hypertension; Z88.5 Allergy status to narcotic agent; Z88.0 Allergy status to penicillin; Z88.8 Allergy status to other drugs, medicaments and biological substances; G93.89 Other specified disorders of brain; F12.90 Cannabis use, unspecified, uncomplicated; R41.82 Altered mental status, unspecified; R73.9 Hyperglycemia, unspecified
CPT/HCPCS: 31500; 36600; 51702; 70450; 70551; 71010; 80048; 80053; 80076; 80164; 80177; 80307; 82140; 82550; 82805; 82948; 83605; 83735; 84100; 84443; 85025; 85027; 85610; 86140; 87641; 93005; 94002; 94003; 94150; 95819; 96374; 96375; 99292; C9113; C9254; J0330; J1644; J1953; J2060; J2250; J7030

== ENCOUNTER 2016-05-15 07:45 | Emergency (ER) | payer MEDICAID ==
[~2016-05-15] VITALS: Ht 182.9 cm; Wt 82.0 kg
[~2016-05-15 07:45] MED LIST changes: -BACT2OIN TOP; -BACT800T5 PO; -CALA240T PO; -CLIN150 PO; -CLON0.5T PO; -FIORIC PO; +KEPP10002 PO; -LACO100 PO; +LACO50 PO; -LEVE500 PO; +VALP250C PO; +VERA120T3 PO
[2016-05-15 07:53] VITALS: BP 149/63; PULSE 58; RESP 16; TEMP 98.1; O2SAT 99
--- NOTE | 2016-05-15 08:11 | PD ---
HPI Chief Complaint: Skin Problem Time Seen by Provider: 08:10 Travel History International Travel<30 days: No Contact w/Intl Traveler<30days: No Traveled to known affect area: No History of Present Illness HPI 35-year-old male presents to the emergency Department with complaint of a blister to his left heel since Tuesday after being discharged from the hospital from having a seizure. His mom says that he may have rubbed his heel on the hospital bed causing the blister. His neurologist told him he needed to come to the ER because of infected and needed to be drained. He denies fevers, Chills, nausea, vomiting. Denies paresthesias, loss of sensation, decreased range of motion, decreased into the affected extremity. Has tried ice to the affected area with some relief. Says the blister was worse yesterday and has gone down today. Denies drainage. Reports pain with pressure and walking. History of seizures and hypertension. Allergies to Betadine, Dilantin, penicillin, Percocet. No other modifying factors or associated signs and symptoms. PFSH Past Medical History Hx Anticoagulant Therapy: No Anxiety: Yes Cardiovascular Problems: Yes (HTN) Chemotherapy: No Cerebrovascular Accident: Yes (AVM) Diabetes: No Diminished Hearing: No Endocrine: No Genitourinary: No Hypertension: Yes Immune Disorder: No Musculoskeletal: No Neurologic: Yes (AVM/ CVA) Reproductive: No Respiratory: No Migraines: Yes Seizures: Yes Past Surgical History Neurologic Surgery: Yes (brain sx with plate 2007) Social History Alcohol Use: No Tobacco Use: No Substance Use: Yes (marijuana once a week) Allergies-Medications (Allergen,Severity, Reaction): Coded Allergies: Betadine (Verified Allergy, Severe, 05/09/16) SKIN BURNING Penicillin (Verified Allergy, Severe, Anaphylaxis, 05/09/16) Percocet (Verified Allergy, Severe, Anaphylaxis, 05/09/16) PATIENT DENIES ALLERGY Dilantin (Verified Adverse Reaction, Intermediate, blurry vision, 11/26/15) Reported Meds & Prescriptions Reported Meds & Active Scripts Active Ibuprofen 800 Mg Tab 800 Mg PO Q6HR PRN Clindamycin (Clindamycin HCl) 150 Mg Cap 450 Mg PO Q8HR 10 Days Valproic Acid 250 Mg Cap 500 Mg PO TID 30 Days Reported Verapamil (Verapamil HCl) 120 Mg Tab 240 Mg PO DAILY Vimpat (Lacosamide) 50 Mg Tab 200 PO BID Keppra (Levetiracetam) 1,000 Mg Tab 1,000 Mg PO Q8HR Review of Systems Except as stated in HPI: all other systems reviewed are Neg Physical Exam Narrative GENERAL: Well-nourished, well-developed male patient, in no acute distress; afebrile, nontoxic-appearing SKIN: Warm and dry. Approximately 4 cm in diameter blister to the left heel that is minimal erythema noted to the outer aspect without edema or drainage. HEAD: Atraumatic. Normocephalic. EYES: Pupils equal and round. No scleral icterus. No injection or drainage. ENT: Mucosa pink and moist. Airway patent. NECK: Trachea midline. CARDIOVASCULAR: Regular rate. RESPIRATORY: No accessory muscle use. GASTROINTESTINAL: Flat. MUSCULOSKELETAL: No obvious deformities. No clubbing. No cyanosis. No edema. NEUROLOGICAL: Awake and alert. Oriented 3. No obvious cranial nerve deficits. Motor grossly within normal limits. Normal speech. PSYCHIATRIC: Appropriate mood and affect; insight and judgment normal. Data Data Last Documented VS Vital Signs Date Time Temp Pulse Resp B/P Pulse Ox O2 Delivery O2 Flow Rate FiO2 05/15/16 07:53 98.1 58 16 149/63 99 Orders Wound Culture And Gram Stain (05/15/16 08:09) Tetanus/Diphtheria Tox Adult (Tetanus/Di (05/15/16 08:15) Crutches (05/15/16 08:16) MDM Medical Decision Making Medical Screen Exam Complete: Yes Emergency Medical Condition: Yes (`) Medical Record Reviewed: Yes Differential Diagnosis Infected blister, blister, pressure ulcer Narrative Course 35-year-old male with blister to his left heel. It does not appear infected at this time, but he does have a minimal amount of erythema at the portion of the outer aspect. See my procedure note for incision and drainage. Wound culture pending. Tetanus updated in the ER. I will prescribe antibiotics for possibility of starting of infection. Nonallergic. Clindamycin and ibuprofen prescribed for home. Crutches provided for support. Patient is medically cleared and stable for discharge. Discussed reasons to return to the emergency department. Instructed patient to follow up with primary care provider. Patient agrees with treatment plan. The patients vital signs are stable and the patient is stable for outpatient follow-up and treatment. Patient discharged home, stable and in no acute distress. Procedures Procedure Narrative INCISION AND DRAINAGE OF BLISTERS: The area was prepped and was sterilely draped. A number 11 scalpel was used to make a <0.5-cm incision across the area of the abscess. Cultures were obtained. The abscess was drained. Sterile dressing applied. Diagnosis Primary Impression: Blister of left heel Qualified Code: S90.822A - Blister of left heel, initial encounter Referrals: Primary Care Physician Patient Instructions: Blister (ED), General Instructions Departure Forms: Tests/Procedures, Work Release Enter return to work date: May 17, 2016 Additional Instructions: Tylenol or ibuprofen as directed and as needed for pain and inflammation Keep area clean and dry Follow-up with primary care provider Return to the emergency department immediately with worsening of symptoms Med/Other Pt SpecificInfo: Prescription(s) given Scripts Ibuprofen 800 Mg [id number] Mg PO Q6HR PRN (PAIN) #30 TAB Ref 0 Prov:Taylor Wick 05/15/16 Clindamycin 150 Mg [id number] Mg PO Q8HR 10 Days Ref 0 Prov:Taylor Wick 05/15/16 Disposition: 01 DISCHARGE HOME Condition: Stable Taylor Wick May 15, 2016 08:11
[2016-05-15] MEDS ORDERED: TETANUS/DIPHTHERIA TOXOID ADULT 0.5 ML VIAL IM ONE (08:15)
[2016-05-15] MEDS ORDERED: IBUP800T23 PO (08:18)
[2016-05-15] MEDS ORDERED: CLIN1CAP5 PO (08:18)
== END 2016-05-15 08:49 | disposition home or self-care (01) ==
LOC: NEPB 07:45
DX: S90.822A Blister (nonthermal), left foot, initial encounter (principal); F12.10 Cannabis abuse, uncomplicated; Z86.73 Personal history of transient ischemic attack (TIA), and cerebral infarction without residual deficits; Z23 Encounter for immunization; X58.XXXA Exposure to other specified factors, initial encounter; Y93.9 Activity, unspecified; Y92.9 Unspecified place or not applicable; Y99.9 Unspecified external cause status; F41.9 Anxiety disorder, unspecified
CPT/HCPCS: 10060; 87070; 90471; 90714; 99283; E0113; 87205

== ENCOUNTER 2016-10-26 16:15 | Inpatient (IN) | payer SELFPAY ==
[~2016-10-26] VITALS: Ht 185.4 cm; Wt 99.2 kg
[~2016-10-26 16:15] MED LIST changes: +CLIN1CAP5 PO; +IBUP800T23 PO
[2016-10-26 16:17] VITALS: BP 153/74; PULSE 50; RESP 14; TEMP 99.1; O2SAT 100
--- NOTE | 2016-10-26 16:39 | PD ---
Physical Exam Date Seen by Provider: Oct 26, 2016 Time Seen by Provider: 16:38 Narrative 35 YOBM C/O FEELING LIKE HE HE IS GOING TO HAVE A SEIZURE. VS REVIEWED AWAITING BED PLACEMENT Data Data Last Documented VS Vital Signs Date Time Temp Pulse Resp B/P Pulse Ox O2 Delivery O2 Flow Rate FiO2 10/26/16 16:17 99.1 50 14 153/74 100 Room Air MDM Supervised Visit with NARESH: No Condition: Stable Geronimo Bran Oct 26, 2016 16:39
--- NOTE | 2016-10-26 16:42 | PD ---
HPI . seizure Chief Complaint: Seizure Time Seen by Provider: 16:41 Travel History International Travel<30 days: No Contact w/Intl Traveler<30days: No Traveled to known affect area: No History of Present Illness HPI 35- year old male presents to the ED complaining of a headache. The patient has a past medical history of seizures and a stroke. The patient reports he was at work, and it was hot out when he started to have blurry vision. He reports he generally has this blurry vision prior to having a seizure. The patient then came to the ED. He reports he is still having blurry vision and is having a headache. The patient reports that he had brain surgery a few months ago, and Medicaid was then terminated. Patient has been unable to financially pay for medical visits and medications and therefore has been off of his seizure medications including Valproic Acid and Keppra for the past two months. He reports his neurologist he used to follow with is Dr. Zavala. Patient was having a seizure, when the physician walked in the room and mentioned Ativan, the patient immediately snapped out of seizure and states that he does not want Ativan. He requested motrin initially for his headache and also wanted percocet. PFSH Past Medical History Hx Anticoagulant Therapy: No Anxiety: Yes Cardiovascular Problems: Yes (HTN) Chemotherapy: No Cerebrovascular Accident: Yes (AVM) Diabetes: No Diminished Hearing: No Endocrine: No Genitourinary: No Hypertension: Yes Immune Disorder: No Musculoskeletal: No Neurologic: Yes (AVM/ CVA) Reproductive: No Respiratory: No Migraines: Yes Seizures: Yes Past Surgical History Neurologic Surgery: Yes (brain sx with plate 2007) Social History Alcohol Use: No Tobacco Use: No Substance Use: Yes (marijuana once a week) Allergies-Medications (Allergen,Severity, Reaction): Coded Allergies: acetaminophen (Unverified Allergy, Severe, Anaphylaxis, 10/26/16) PATIENT DENIES ALLERGY oxycodone (Unverified Allergy, Severe, Anaphylaxis, 10/26/16) PATIENT DENIES ALLERGY penicillin G (Unverified Allergy, Severe, Anaphylaxis, 10/26/16) povidone-iodine (Unverified Allergy, Severe, 10/26/16) SKIN BURNING phenytoin (Unverified Adverse Reaction, Intermediate, blurry vision, ) Reported Meds & Prescriptions Reported Meds & Active Scripts Active Ibuprofen 800 Mg Tab 800 Mg PO Q6HR PRN Clindamycin (Clindamycin HCl) 150 Mg Cap 450 Mg PO Q8HR 10 Days Valproic Acid 250 Mg Cap 500 Mg PO TID 30 Days Reported Verapamil (Verapamil HCl) 120 Mg Tab 240 Mg PO DAILY Vimpat (Lacosamide) 50 Mg Tab 200 PO BID Keppra (Levetiracetam) 1,000 Mg Tab 1,000 Mg PO Q8HR Review of Systems General / Constitutional: No: Fever Eyes: Positive: Blurred Vision, No: Visual changes HENT: No: Headaches Cardiovascular: No: Chest Pain or Discomfort Respiratory: No: Shortness of Breath Gastrointestinal: No: Abdominal Pain Genitourinary: No: Dysuria Musculoskeletal: No: Pain Skin: No Rash Neurologic: Positive: Headache, Seizures, No: Weakness, Ataxia Psychiatric: No: Depression Endocrine: No: Polydipsia Hematologic/Lymphatic: No: Easy Bruising Physical Exam Narrative GENERAL: no acute distress, Well-nourished, well-developed patient. SKIN: Warm and dry. No visible rashes or bruising. HEAD: Normocephalic and atraumatic. EYES: No scleral icterus. No injection or drainage. EOM intact, ENT: No nasal drainage noted. Mucous membranes pink. Airway patent. NECK: Supple, trachea midline. No JVD. CARDIOVASCULAR: Regular rate and rhythm without murmurs, gallops, or rubs. RESPIRATORY: Breath sounds equal bilaterally. No accessory muscle use. No rhonchi or rales. no wheezing. GASTROINTESTINAL: Abdomen soft, non-tender, nondistended. EXTREMITIES: No cyanosis or edema. BACK: Nontender without obvious deformity. NEURO: CN II-12 intact, lead dental assistant strength normal b/l, UE and LE 5/5, no focal deficits PSYCH: has some difficulty relaying information, seems a little confused Data Data Last Documented VS Vital Signs Date Time Temp Pulse Resp B/P Pulse Ox O2 Delivery O2 Flow Rate FiO2 10/26/16 16:17 99.1 50 14 153/74 100 Room Air Orders Valproic Acid (Depakene) (10/26/16 16:53) Levetiracetam (10/26/16 16:53) Complete Blood Count With Diff (10/26/16 16:53) Basic Metabolic Panel (Bmp) (10/26/16 16:53) Alcohol (Ethanol) (10/26/16 16:54) Drug Screen, Random Urine (10/26/16 16:54) Electrocardiogram (10/26/16 ) Ct Brain W/O Iv Contrast(Rout) (10/26/16 ) Blood Glucose (10/26/16 16:54) Ecg Monitoring (10/26/16 16:54) Iv Access Insert/Monitor (10/26/16 16:54) Oximetry (10/26/16 16:54) Urinalysis - C+S If Indicated (10/26/16 16:54) Ibuprofen (Motrin) (10/26/16 17:00) Lactic Acid (10/26/16 17:09) Lorazepam Inj (Ativan Inj) (10/26/16 17:30) Lorazepam Inj (Ativan Inj) (10/26/16 17:19) Levetiracetam 1000 Mg Inj (Keppra 1000 M (10/26/16 17:30) Lorazepam Inj (Ativan Inj) (10/26/16 17:30) Sodium Chlor 0.9% 1000 Ml Inj (Ns 1000 M (10/26/16 17:45) Midazolam Inj (Versed Inj) (10/26/16 17:40) Fentanyl Inj (Fentanyl Inj) (10/26/16 18:15) Phenobarbital Inj (Luminal Inj) (10/26/16 18:15) Hepatic Functional Panel (10/26/16 18:22) ^ Straight Catheter (10/26/16 18:33) Labs Laboratory Tests Test 10/26/16 17:25 White Blood Count 10.4 TH/MM3 Red Blood Count 4.40 MIL/MM3 Hemoglobin 14.1 GM/DL Hematocrit 41.9 % Mean Corpuscular Volume 95.3 FL Mean Corpuscular Hemoglobin 32.1 PG Mean Corpuscular Hemoglobin 33.7 % Concent Red Cell Distribution Width 13.3 % Platelet Count 196 TH/MM3 Mean Platelet Volume 9.0 FL Neutrophils (%) (Auto) 58.0 % Lymphocytes (%) (Auto) 33.1 % Monocytes (%) (Auto) 7.3 % Eosinophils (%) (Auto) 0.5 % Basophils (%) (Auto) 1.1 % Neutrophils # (Auto) 6.0 TH/MM3 Lymphocytes # (Auto) 3.5 TH/MM3 Monocytes # (Auto) 0.8 TH/MM3 Eosinophils # (Auto) 0.1 TH/MM3 Basophils # (Auto) 0.1 TH/MM3 CBC Comment DIFF FINAL Differential Comment Sodium Level 144 MEQ/L Potassium Level 3.0 MEQ/L Chloride Level 107 MEQ/L Carbon Dioxide Level 18.5 MEQ/L Anion Gap 19 MEQ/L Blood Urea Nitrogen 11 MG/DL Creatinine 1.32 MG/DL Estimat Glomerular Filtration 75 ML/MIN Rate Random Glucose 158 MG/DL Calcium Level 9.2 MG/DL Valproic Acid (Depakene) Level LESS THAN 3 MCG/ML Ethyl Alcohol Level LESS THAN 3 MG/DL MDM Medical Decision Making Medical Screen Exam Complete: Yes Emergency Medical Condition: Yes Medical Record Reviewed: Yes Differential Diagnosis Pseudoseizures Seizure disorder Malingering Substance Abuse Narrative Course 35 year old male here with possible seizures. Labs, imaging including CT brain have been ordered. I also ordered valproic acid level along with keppra level. It appears that he had abruptly stopped his meds due to lack of insurance and would likely need to be resumed on them. I discussed case with my attending Dr. Covarrubias. He was in agreement with workup. 1724: called to room as patient was having a seizure, 1 mg IM ativan given as there was no IV access. Dr. Britt placed EJ IV catheter and access was obtained. Keppra 1000mg ordered. Patient still seizing and 2 mg IV ativan given as well. Dr. Britt was in the room for a prolonged time. Patient had to be given Versed, Fentanyl. Central line was placed. Dr. Britt has resumed care of this patient. Condition: Stable Juhi Philippe Oct 26, 2016 16:42
[2016-10-26] MEDS ORDERED: IBUPROFEN 800 MG TAB PO ONE (17:00)
[2016-10-26] MEDS ORDERED: LORazepam 2 MG/ML VIAL ONE (17:19)
[2016-10-26] MEDS ORDERED: LORazepam 2 MG/ML VIAL IV PUSH ONE (17:30)
[2016-10-26] MEDS ORDERED: LORazepam 2 MG/ML VIAL IM ONE (17:30)
[2016-10-26] MEDS ORDERED: levETIRAcetam 1000 MG INJ 100 ML IV ONE (17:30)
[2016-10-26] MEDS ORDERED: MIDAZOLAM HCL 5 MG/ML VIAL (1 ML) ONE (17:40)
[2016-10-26] MEDS ORDERED: SODIUM CHLOR 0.9% 1000 ML INJ 1,000 ML IV ONE ×2 (17:45→20:00)
[2016-10-26 18:02] LABS: BASOPHIL # 0.1 TH/MM3 (0-0.2); BASOPHIL % 1.1 % (0.0-2.0); EOSINOPHIL # 0.1 TH/MM3 (0-0.4); EOSINOPHIL % 0.5 % (0.0-4.0); HEMATOCRIT 41.9 % (39.0-51.0); HEMO FLAGS DIFF FINAL; LYMPH % 33.1 % (9.0-44.0); LYMPHOCYTE # 3.5 TH/MM3 (1.0-4.8); MEAN CELL VOLUME 95.3 FL (80.0-100.0); MEAN CORPUSCULAR HEMOGLOBIN 32.1 PG (27.0-34.0); MEAN CORPUSCULAR HGB CONC 33.7 % (32.0-36.0); MONO % 7.3 % (0.0-8.0); PLATELET COUNT 196 TH/MM3 (150-450); RED CELL DISTRIBUTION WIDTH 13.3 % (11.6-17.2); WHITE BLOOD COUNT 10.4 TH/MM3 (4.0-11.0)
[2016-10-26] MEDS ORDERED: PHENobarbital INJ 1,000 MG in SODIUM CHLORIDE 0.9% INJ 100 ML IV ONE (18:15)
[2016-10-26 18:22] LABS: ANION GAP 19 MEQ/L (5-15); BICARBONATE 18.5 MEQ/L (21.0-32.0); BLOOD UREA NITROGEN 11 MG/DL (7-18); CHLORIDE 107 MEQ/L (98-107); GLOMERULAR FILTRATION RATE 75 ML/MIN (>89); SODIUM (NA) 144 MEQ/L (136-145)
[2016-10-26 19:11] LABS: INDIRECT BILIRUBIN 0.2 MG/DL (0.0-0.8); TOTAL BILIRUBIN ADULT 0.3 MG/DL (0.2-1.0)
[2016-10-26 19:27] VITALS: BP 123/58; PULSE 91; RESP 18; O2SAT 100
[2016-10-26 19:28] VITALS: RESP 18; O2SAT 100
--- NOTE | 2016-10-26 20:26 | PD ---
Data Data Last Documented VS Vital Signs Date Time Temp Pulse Resp B/P Pulse Ox O2 Delivery O2 Flow Rate FiO2 10/26/16 19:28 18 100 Nasal Cannula 2 10/26/16 19:27 91 123/58 10/26/16 16:17 99.1 Orders Valproic Acid (Depakene) (10/26/16 16:53) Levetiracetam (10/26/16 16:53) Complete Blood Count With Diff (10/26/16 16:53) Basic Metabolic Panel (Bmp) (10/26/16 16:53) Alcohol (Ethanol) (10/26/16 16:54) Drug Screen, Random Urine (10/26/16 16:54) Electrocardiogram (10/26/16 ) Ct Brain W/O Iv Contrast(Rout) (10/26/16 ) Blood Glucose (10/26/16 16:54) Ecg Monitoring (10/26/16 16:54) Iv Access Insert/Monitor (10/26/16 16:54) Oximetry (10/26/16 16:54) Urinalysis - C+S If Indicated (10/26/16 16:54) Ibuprofen (Motrin) (10/26/16 17:00) Lactic Acid (10/26/16 17:09) Lorazepam Inj (Ativan Inj) (10/26/16 17:30) Lorazepam Inj (Ativan Inj) (10/26/16 17:19) Levetiracetam 1000 Mg Inj (Keppra 1000 M (10/26/16 17:30) Lorazepam Inj (Ativan Inj) (10/26/16 17:30) Sodium Chlor 0.9% 1000 Ml Inj (Ns 1000 M (10/26/16 17:45) Midazolam Inj (Versed Inj) (10/26/16 17:40) Fentanyl Inj (Fentanyl Inj) (10/26/16 18:15) Phenobarbital Inj (Luminal Inj) (10/26/16 18:15) Hepatic Functional Panel (10/26/16 18:22) ^ Straight Catheter (10/26/16 18:33) Restraints Violent (10/26/16 19:42) Sodium Chlor 0.9% 1000 Ml Inj (Ns 1000 M (10/26/16 20:00) Admit To Inpatient (10/26/16 ) Code Status (10/26/16 21:05) Vital Signs (Adult) JOSSE.Q1H (10/26/16 21:05) Activity Bed Rest (10/26/16 21:05) Elevate Head Of Bed (10/26/16 21:05) Neuro Checks . ORDERED (10/26/16 21:05) Diet Npo (10/27/16 Breakfast) Ns + Kcl 20 Meq Inj (Ns + Kcl 20 Meq Inj (10/26/16 21:05) Sodium Chloride 0.9% Flush (Ns Flush) (10/26/16 21:15) Sodium Chloride 0.9% Flush (Ns Flush) (10/27/16 09:00) Ondansetron Inj (Zofran Inj) (10/26/16 21:15) Complete Blood Count With Diff (10/27/16 04:00) Comprehensive Metabolic Panel (10/27/16 04:00) Magnesium (Mg) (10/27/16 04:00) Phosphorus (Po4) (10/27/16 04:00) Portable Eeg (10/27/16 07:00) Oil Pipe Inspector Helper / Telemetry JOSSE.Q8H (10/26/16 21:05) Scd Bilateral/Knee High JOSSE.BID (10/26/16 21:05) ^ Initiate Protocol (10/26/16 21:05) Instruction (10/26/16 21:05) [facility] Nursing Information (10/26/16 21:15) Chlorhexidine 2% Cloth (Chlorhexidine 2% (10/27/16 04:00) Chlorhexidine 2% Cloth (Chlorhexidine 2% (10/26/16 21:15) Mrsa Pcr Surveillance (10/26/16 21:05) Docusate Sodium-Senna (Payton-Colace) (10/27/16 09:00) Magnesium Hydroxide Liq (Milk Of Magnesi (10/26/16 21:15) Sennosides (Senokot) (10/26/16 21:15) Bisacodyl Supp (Dulcolax Supp) (10/26/16 21:15) Lactulose Liq (Lactulose Liq) (10/26/16 21:15) Inpatient Certification (10/26/16 ) Levetiracetam Inj (Keppra Inj) (10/27/16 09:00) Consult Neurology (10/26/16 ) Potassium Chlor 40 Meq Premix (Kcl 40 Me (10/26/16 21:15) Admit Order (Ed Use Only) (10/26/16 21:14) Labs Laboratory Tests Test 10/26/16 10/26/16 17:25 18:25 White Blood Count 10.4 TH/MM3 Red Blood Count 4.40 MIL/MM3 Hemoglobin 14.1 GM/DL Hematocrit 41.9 % Mean Corpuscular Volume 95.3 FL Mean Corpuscular Hemoglobin 32.1 PG Mean Corpuscular Hemoglobin 33.7 % Concent Red Cell Distribution Width 13.3 % Platelet Count 196 TH/MM3 Mean Platelet Volume 9.0 FL Neutrophils (%) (Auto) 58.0 % Lymphocytes (%) (Auto) 33.1 % Monocytes (%) (Auto) 7.3 % Eosinophils (%) (Auto) 0.5 % Basophils (%) (Auto) 1.1 % Neutrophils # (Auto) 6.0 TH/MM3 Lymphocytes # (Auto) 3.5 TH/MM3 Monocytes # (Auto) 0.8 TH/MM3 Eosinophils # (Auto) 0.1 TH/MM3 Basophils # (Auto) 0.1 TH/MM3 CBC Comment DIFF FINAL Differential Comment Sodium Level 144 MEQ/L Potassium Level 3.0 MEQ/L Chloride Level 107 MEQ/L Carbon Dioxide Level 18.5 MEQ/L Anion Gap 19 MEQ/L Blood Urea Nitrogen 11 MG/DL Creatinine 1.32 MG/DL Estimat Glomerular Filtration 75 ML/MIN Rate Random Glucose 158 MG/DL Calcium Level 9.2 MG/DL Valproic Acid (Depakene) Level LESS THAN 3 MCG/ML Ethyl Alcohol Level LESS THAN 3 MG/DL Lactic Acid Level 5.3 mmol/L Total Bilirubin 0.3 MG/DL Direct Bilirubin 0.1 MG/DL Indirect Bilirubin 0.2 MG/DL Aspartate Amino Transf 14 U/L (AST/SGOT) Alanine Aminotransferase 23 U/L (ALT/SGPT) Alkaline Phosphatase 64 U/L Total Protein 6.3 GM/DL Albumin 3.8 GM/DL [facility] Medical Record Reviewed: Yes Supervised Visit with NARESH: No Narrative Course I was called to bedside at approximately 5:30 PM when the patient was found to be seizing. I am Ativan 2 mg was ordered stat. Over the next 45 minutes IV access was attempted and finally succeeding the placement of a right femoral vein triple-lumen cannulation with the support multiple security guards restrain the patient throughout. He received an additional 2 mg of Ativan as well as 5 mg of IM Versed. 1 g of IV Keppra was ordered. Right external jugular access was obtained on the right side which infiltrated. Reportedly the patient entered the ER with complaint of headache and what he felt was an impending seizure. He has been noncompliant with his Vimpat and Keppra due to insurance problems. The reports the patient has presented multiple times a status epilepticus and has been intubated previously in association with seizures. About 10 minutes after infusion of Keppra seizures resolved. 2 L IV saline transfused. Locked restraints required as the patient has a history of self discontinuing his IVs. Case d/w Dr Esqueda for secondary special education teacher service. CBC & BMP Diagram 10/26/16 17:25 LA 5.3 LFTs normal AG 19 Procedures Procedure Narrative CENTRAL VENOUS LINE: The site was prepped with Betadine and sterilely draped. It was infiltrated with 1% lidocaine plain. The deep vein was cannulated using normal Seldinger technique. A triple lumen central line was placed in the right femoral vein site and secured with simple interrupted suture. The site was sterilely dressed. The patient tolerated the procedure well. Diagnosis Primary Impression: Status epilepticus Additional Impression: Hypokalemia Admitting Information Admitting Physician Requests: Pedro Khan MD Oct 26, 2016 20:26
[2016-10-26] MEDS: NS + KCL 20 MEQ INJ 1,000 ML IV SCH (21:05)
[2016-10-26] MEDS ORDERED: BISACODYL 10 MG SUPP RECTAL PRN (21:15)
[2016-10-26] MEDS ORDERED: LACTULOSE SYRUP 20 GM/30 ML CUP PO PRN (21:15)
[2016-10-26] MEDS ORDERED: MAGNESIUM HYDROXIDE SUSP 30 ML CUP PO PRN (21:15)
[2016-10-26] MEDS ORDERED: SODIUM CHLORIDE 0.9% FLUSH 10 ML FLUSH IV FLUSH PRN (21:15)
[2016-10-26] MEDS ORDERED: POTASSIUM CHLOR 40 MEQ PREMIX 100 ML IV ONE (21:15)
[2016-10-26] MEDS ORDERED: SENNOSIDES 8.6 MG TAB PO PRN (21:15)
[2016-10-26] MEDS ORDERED: CHLORHEXIDINE GLUCONATE 2 % 1 PACK (2 CLOTHS) TOP PRN (21:15)
[2016-10-26] MEDS ORDERED: MISCELLANEOUS NURSING INFORMATION XX SCH (21:15)
[2016-10-26] MEDS ORDERED: ONDANSETRON HCL 4 MG/2 ML VIAL IV PRN (21:15)
[2016-10-26 21:30] VITALS: BP 140/63; PULSE 80; RESP 16; O2SAT 99
--- NOTE | 2016-10-26 21:57 | RADRPT ---
EXAM DATE/TIME: 10/26/2016 21:29 [place] COMPARISON: CT BRAIN W/O CONTRAST, May 09, 2016, 10:59. INDICATIONS : Altered mental status, possible seizure. RADIATION DOSE: 30.27 CTDIvol (mGy) MEDICAL HISTORY : Cerebrovascular disease. Hypertension. AVM SURGICAL HISTORY : Brain surgery ENCOUNTER: Initial ACUITY: 1 day PAIN SCALE: 0/10 LOCATION: cranial TECHNIQUE: Multiple contiguous axial images were obtained of the head. Using automated exposure control and adj ustment of the mA and/or kV according to patient size, radiation dose was kept as low as reasonably a chievable to obtain optimal diagnostic quality images. DICOM format image data is available electro nically for review and comparison. FINDINGS: CEREBRUM: The ventricles are normal for age. No evidence of midline shift, mass lesion, hemorrhage or acute in farction. No extra-axial fluid collections are seen. Encephalomalacia again seen of the right pariet al lobe. POSTERIOR FOSSA: The cerebellum and brainstem are intact. The 4th ventricle is midline. The cerebellopontine angle i s unremarkable. EXTRACRANIAL: Right parietal craniotomy changes are again noted. SKULL: The calvaria is intact. No evidence of skull fracture. CONCLUSION: 1. No acute intracranial abnormality. 2. 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 Mitchell Morales MD on October 26, 2016 at 21:53 Board Certified Radiologist. This report was verified electronically.
--- NOTE | 2016-10-26 22:21 | HHI.HP ---
HPI Service Critical Care Medicine Primary Care Physician Unknown Admission Diagnosis Status Epilepticus Diagnosis: Chief Complaint: seizure Travel History International Travel<30 Days: No Contact w/Intl Traveler <30 Da: No Traveled to Known Affected Are: No History of Present Illness 35-year-old male who presented to the ER with a headache. He has a history of seizures/epilepsy however has been off his seizure medication including Vimpat and Keppra for a few months due to insurance issues. Patient to [place] had seizure for about 30 minutes in the ER. ER physician placed a femoral central line following which she received Ativan 4 mg and Versed 5 mg IV following which his seizures were controlled. He was subsequently loaded with Keppra 1 g IV. I was contacted and accepted patient for admission to the ICU. When I evaluated the patient in the ER he was drowsy/sedated secondary to the Ativan and Versed he received and possibly postictal. He had just come back from head CT results of which are pending. He was too sedated at this time to give details of his history which were obtained by discussion with ER physician and reviewing records. PFSH Past Medical History Hx Anticoagulant Therapy: No Anxiety: Yes Cardiovascular Problems: Yes (HTN) Chemotherapy: No Cerebrovascular Accident: Yes (AVM) Diabetes: No Diminished Hearing: No Endocrine: No Genitourinary: No Hypertension: Yes Immune Disorder: No Musculoskeletal: No Neurologic: Yes (AVM/ CVA) Reproductive: No Respiratory: No Migraines: Yes Seizures: Yes Past Surgical History Neurologic Surgery: Yes (brain sx with plate 2007) Social History Alcohol Use: No Tobacco Use: No Substance Use: Yes (marijuana once a week) Allergies-Medications (Allergen,Severity, Reaction): Coded Allergies: acetaminophen (Unverified Allergy, Severe, Anaphylaxis, 10/26/16) PATIENT DENIES ALLERGY oxycodone (Unverified Allergy, Severe, Anaphylaxis, 10/26/16) PATIENT DENIES ALLERGY penicillin G (Unverified Allergy, Severe, Anaphylaxis, 10/26/16) povidone-iodine (Unverified Allergy, Severe, 10/26/16) SKIN BURNING phenytoin (Unverified Adverse Reaction, Intermediate, blurry vision, ) Reported Meds & Prescriptions Reported Meds & Active Scripts Active Ibuprofen 800 Mg Tab 800 Mg PO Q6HR PRN ? Clindamycin (Clindamycin HCl) 150 Mg Cap 450 Mg PO Q8HR 10 Days Valproic Acid 250 Mg Cap 500 Mg PO TID 30 Days Reported Verapamil (Verapamil HCl) 120 Mg Tab 240 Mg PO DAILY Vimpat (Lacosamide) 50 Mg Tab 200 PO BID Keppra (Levetiracetam) 1,000 Mg Tab 1,000 Mg PO Q8HR Review of Systems ROS Limitations: Clinical Condition, Altered Mental Status Physical Exam Vital Signs Vital Signs Date Time Temp Pulse Resp B/P Pulse Ox O2 Delivery O2 Flow Rate FiO2 10/26/16 19:28 18 100 Nasal Cannula 2 10/26/16 19:27 91 18 123/58 100 Room Air 10/26/16 16:17 99.1 50 14 153/74 100 Room Air Physical Exam HEENT/Neuro: No pallor or icterus, tongue moist, GRETEL, drowsy, arousable, not following commands,, nonfocal grossly, moving all 4 extremities. Pupils 3mm bilaterally reacting actively to light. Neck: No JVD Chest/pulmonary: CTA bilaterally Cardiovascular: S1-S2 regular no gallop or murmur GI/abdomen: Soft, nontender, bowel sounds present Extremities: Warm bilaterally, no edema Laboratory Laboratory Tests Test 10/26/16 10/26/16 17:25 18:25 White Blood Count 10.4 Red Blood Count 4.40 Hemoglobin 14.1 Hematocrit 41.9 Mean Corpuscular Volume 95.3 Mean Corpuscular Hemoglobin 32.1 Mean Corpuscular Hemoglobin 33.7 Concent Red Cell Distribution Width 13.3 Platelet Count 196 Mean Platelet Volume 9.0 Neutrophils (%) (Auto) 58.0 Lymphocytes (%) (Auto) 33.1 Monocytes (%) (Auto) 7.3 Eosinophils (%) (Auto) 0.5 Basophils (%) (Auto) 1.1 Neutrophils # (Auto) 6.0 Lymphocytes # (Auto) 3.5 Monocytes # (Auto) 0.8 Eosinophils # (Auto) 0.1 Basophils # (Auto) 0.1 CBC Comment DIFF FINAL Differential Comment Sodium Level 144 Potassium Level 3.0 Chloride Level 107 Carbon Dioxide Level 18.5 Anion Gap 19 Blood Urea Nitrogen 11 Creatinine 1.32 Estimat Glomerular Filtration 75 Rate Random Glucose 158 Calcium Level 9.2 Valproic Acid (Depakene) Level LESS THAN 3 Ethyl Alcohol Level LESS THAN 3 Lactic Acid Level 5.3 Total Bilirubin 0.3 Direct Bilirubin 0.1 Indirect Bilirubin 0.2 Aspartate Amino Transf 14 (AST/SGOT) Alanine Aminotransferase 23 (ALT/SGPT) Alkaline Phosphatase 64 Total Protein 6.3 Albumin 3.8 Result Diagram: 10/26/16172410/26/161724 Assessment and Plan Assessment and Plan 35-year-old male with: Seizure History of epilepsy Plan: Neuro: Loaded with Keppra 1 g IV, continue 1000 mg IV every 12 hourly. Valproate 500mg IV x 1 then start Valproate 500mg PO [id number].Obtain EEG and neuro consult. Further anticonvulsant therapy to be decided by neurology. Currently drowsy following IV of Ativan and Versed. Follow neuro checks. Follow-up head CT. Cardiovascular: IV hydration, watch for hypotension Pulmonary: Currently protecting airway. Supplemental O2 as needed. GI/liver: Nothing by mouth for now. Initiate by mouth diet once neuro status improved. Renal/ IV hydration, follow intake output, monitor and replete electrolytes, follow BUN/creatinine ID: No antibiotics indicated at this time. Heme: Follow CBC Prophylaxis: SCDs. Early mobilization tomorrow. Initiate subcutaneous heparin if not ambulatory tomorrow. We will consult hospitalist service to assume medical care tomorrow morning. Critical care will be available as needed. Bakari Esqueda MD Oct 26, 2016 22:21
[2016-10-26 22:23] LABS: BLOOD, URINE NEG (NEG); COMMENT (UR) CULT NOT INDICATED; CULTURE IF INDICATED CULT NOT INDICATED; GLUCOSE,URINE NEG (NEG); KETONE, URINE NEG (NEG); NITRITE,URINE NEG (NEG); SQUAMOUS EPITHELIAL CELL URINE <1 /hpf (0-5); URINE COLOR LIGHT-YELLOW (YELLW/STRAW)
[2016-10-26] MEDS ORDERED: VALPROATE INJ 500 MG in SODIUM CHLORIDE 0.9% INJ 100 ML IV ONE (22:30)
[2016-10-26 23:00] VITALS: BP 137/63; PULSE 74; RESP 16; O2SAT 100
[2016-10-27] VITALS (16 sets, daily range): BP systolic 114–144; BP diastolic 54–96; PULSE 49–82; RESP 16–43; TEMP 97.8–98.8; O2SAT 59–100
--- NOTE | 2016-10-27 00:27 | EKG ---
Date Performed: 10/26/2016 Time Performed: 18:56:38 PTAGE: 35 years EKG: Sinus rhythm POSSIBLE LEFT ATRIAL ENLARGEMENT BORDERLINE ECG PREVIOUS TRACING : 05/09/2016 10.40 Compared to prior tracing no significant change DOCTOR: Jez Britt Interpretating Date/Time 10/27/2016 00:26:55
[2016-10-27] MEDS: CHLORHEXIDINE GLUCONATE 2 % 1 PACK (2 CLOTHS) TOP SCH (04:00)
[2016-10-27 05:02] LABS: ALKALINE PHOSPHATASE 58 U/L (45-117); ALT (GPT) 22 U/L (12-78); ANION GAP 6 MEQ/L (5-15); AST (GOT) 19 U/L (15-37); BLOOD UREA NITROGEN 7 MG/DL (7-18); CHLORIDE 110 MEQ/L (98-107); GLOMERULAR FILTRATION RATE 112 ML/MIN (>89); MAGNESIUM 2.3 MG/DL (1.5-2.5); SODIUM (NA) 140 MEQ/L (136-145); TOTAL BILIRUBIN ADULT 0.5 MG/DL (0.2-1.0)
[2016-10-27] MEDS: NS + KCL 20 MEQ INJ 1,000 ML IV SCH ×2 (08:10→13:02)
[2016-10-27] MEDS: levETIRAcetam 1000 MG INJ 100 ML IV SCH ×3 (08:10→22:00)
[2016-10-27] MEDS: VALPROIC ACID 250 MG CAP PO SCH ×2 (08:11→20:29)
[2016-10-27] MEDS: DOCUSATE SODIUM 50 MG/SENNA 8.6 MG TAB PO SCH ×2 (08:11→20:29)
[2016-10-27] MEDS: SODIUM CHLORIDE 0.9% FLUSH 10 ML FLUSH IV FLUSH SCH ×2 (09:00→20:29)
[2016-10-27] MEDS ORDERED: levETIRAcetam INJ 500 MG in SODIUM CHLORIDE 0.9% INJ 100 ML IV SCH (09:00)
[2016-10-27] MEDS ORDERED: levETIRAcetam INJ 1,000 MG in SODIUM CHLORIDE 0.9% INJ 100 ML IV SCH (09:00)
--- NOTE | 2016-10-27 12:18 | HHI.PR ---
Subjective Remarks resting comfortably with no distress. no seizures over night. no headache. d/w the RN. Objective Vitals Vital Signs Date Time Temp Pulse Resp B/P Pulse Ox O2 Delivery O2 Flow Rate FiO2 10/27/16 10:45 58 10/27/16 10:00 58 10/27/16 09:45 62 10/27/16 09:45 98.7 62 20 114/54 100 10/27/16 09:10 97.9 78 16 118/65 99 10/27/16 07:30 97.8 82 16 122/69 99 Room Air 10/27/16 07:30 18 99 10/27/16 07:30 76 18 99 Room Air 10/27/16 02:31 74 18 115/56 Room Air 10/27/16 00:44 72 16 144/67 100 Room Air 10/26/16 23:00 74 16 137/63 100 Room Air 10/26/16 21:30 80 16 140/63 99 Room Air 10/26/16 19:28 18 100 Nasal Cannula 2 10/26/16 19:27 91 18 123/58 100 Room Air 10/26/16 16:17 99.1 50 14 153/74 100 Room Air I/O 10/26/16 10/26/16 10/26/16 10/27/16 10/27/16 10/27/16 07:00 15:00 23:00 07:00 15:00 23:00 Output Total 800 ml Balance -800 ml Output Urine Total 800 ml # Voids 1 # Bowel Movements 0 Result Diagram: 10/26/16 1725 10/27/16 0404 Imaging Last Impressions Head CT 10/26/16 0000 Signed Impressions: Service Date/Time: Wednesday, October 26, 2016 21:29 - CONCLUSION: 1. No acute intracranial abnormality. 2. 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 Mitchell Morales MD Objective Remarks GENERAL: This is a well-nourished, well-developed patient, in no apparent distress. CARDIOVASCULAR: Regular rate and regular rhythm without murmurs, gallops, or rubs. RESPIRATORY: Clear to auscultation. Breath sounds equal bilaterally. No wheezes , rales, or rhonchi. GASTROINTESTINAL: Abdomen soft, non-tender, nondistended. Normal, active bowel sounds MUSCULOSKELETAL: Extremities without clubbing, cyanosis, or edema. NEURO: Alert & Oriented x4 to person, place, time, situation. Moves all ext x4 Medications and IVs Current Medications Ibuprofen (Motrin) 800 mg ONCE ONCE PO ; Start 10/26/16 at 17:00; Stop at 17:01; Status DC Lorazepam (Ativan Inj) 1 mg ONCE ONCE IM Last administered on 10/26/16 17:35 ; Start 10/26/16 at 17:30; Stop 10/26/16 at 17:31; Status DC Lorazepam 2 mg 2 mg STK-MED ONCE .ROUTE ; Start 10/26/16 at 17:19; Stop at 17:20; Status DC Levetriacetam (Keppra 1000 Mg Inj) 100 ml @ 400 mls/hr BOLUS ONCE IV Last administered on 10/26/16 18:49; Start 10/26/16 at 17:30; Stop 10/26/16 at 17:44 ; Status DC Lorazepam 2 mg 2 mg ONCE ONCE IV PUSH Last administered on 10/26/16 17:36; Start 10/26/16 at 17:30; Stop 10/26/16 at 17:31; Status DC Sodium Chloride (NS 1000 ml Inj) 1,000 ml @ 999 mls/hr BOLUS ONCE IV Last administered on 10/26/16 17:37; Start 10/26/16 at 17:45; Stop 10/26/16 at 18:45 ; Status DC Midazolam HCl (Versed Inj) 5 mg STK-MED ONCE .ROUTE Last administered on 18:49; Start 10/26/16 at 17:40; Stop 10/26/16 at 17:41; Status DC Fentanyl Citrate 25 mcg 25 mcg ONCE ONCE IV PUSH Last administered on 18:48; Start 10/26/16 at 18:15; Stop 10/26/16 at 18:16; Status DC Phenobarbital Sodium 1000 mg/ Sodium Chloride 107.6923 ml @ 215.... ONCE ONCE IV ; Start 10/26/16 at 18:15; Stop 10/26/16 at 22:14; Status DC Sodium Chloride 1,000 ml @ 999 mls/hr BOLUS ONCE IV Last administered on 10/26 20:00; Start 10/26/16 at 20:00; Stop 10/26/16 at 21:00; Status DC Potassium Chloride/Sodium Chloride (NS + KCl 20 Meq Inj) 1,000 ml @ 100 mls/hr Q10H IV Last administered on 10/27/16 08:10; Start 10/26/16 at 21:05 Sodium Chloride (NS Flush) 2 ml UNSCH PRN IV FLUSH FLUSH AFTER USING IV ACCESS ; Start 10/26/16 at 21:15 Sodium Chloride (NS Flush) 2 ml BID IV FLUSH Last administered on 10/27/16 09: 00; Start 10/27/16 at 09:00 Ondansetron HCl (Zofran Inj) 4 mg Q6H PRN IV NAUSEA OR VOMITING; Start at 21:15 Miscellaneous Information 1 [id number] XX ; Start 10/26/16 at 21:15 Chlorhexidine Gluconate (Chlorhexidine 2% Cloth) 3 pack Taper DAILY@04 TOP ; Start 10/27/16 at 04:00; Stop 10/23/17 at 03:59 Chlorhexidine Gluconate (Chlorhexidine 2% Cloth) 3 pack UNSCH PRN TOP HYGIENIC CARE; Start 10/26/16 at 21:15 Senna/Docusate Sodium (Payton-Colace) 1 tab BID PO Last administered on 08:11; Start 10/27/16 at 09:00 Magnesium Hydroxide (Milk Of Magnesia Liq) 30 ml Q12H PRN PO MILD - MODERATE CONSTIPATION; Start 10/26/16 at 21:15 Sennosides (Senokot) 17.2 mg Q12H PRN PO MODERATE - SEVERE CONSTIPATION; Start 10/26/16 at 21:15 Bisacodyl (Dulcolax Supp) 10 mg DAILY PRN RECTAL SEVERE CONSITIPATION; Start at 21:15 Lactulose 30 ml 30 ml DAILY PRN PO SEVERE CONSITIPATION; Start 10/26/16 at 21: 15 Levetriacetam 500 mg/Sodium Chloride 105 ml @ 420 mls/hr Q12HR IV ; Start 10/27 at 09:00; Stop 10/27/16 at 09:00; Status DC Potassium Chloride 100 ml @ 25 mls/hr ONCE ONCE IV Last administered on 21:15; Start 10/26/16 at 21:15; Stop 10/27/16 at 01:14; Status DC Levetriacetam/ Sodium Chloride (Keppra Inj/NS Inj) 110 ml @ 420 mls/hr Q12HR IV ; Start 10/27/16 at 09:00; Status Cancel Valproic Acid 500 mg 500 mg Q12HR PO Last administered on 10/27/16 08:11; Start 10/27/16 at 09:00 Valproate Sodium 500 mg/Sodium Chloride 105 ml @ 105 mls/hr ONCE ONCE IV Last administered on 10/26/16 22:30; Start 10/26/16 at 22:30; Stop 10/26/16 at 23:29; Status DC Levetriacetam (Keppra 1000 Mg Inj) 100 ml @ 400 mls/hr Q12HR IV Last administered on 10/27/16 08:10; Start 10/27/16 at 09:00 A/P Assessment and Plan A/P - seizure seizure precautions- continue Valproic acid and Keppra- follow EEG- neurology consulted. -acute kidney injury; resolved. -lactic acidosis- due to seizure- -hypokalemia;replaced -hypophosphatemia; will replace Jesu Bailey MD Oct 27, 2016 12:18
[2016-10-27 13:36] LABS: AUTOMATED NEUTROPHIL # 4.4 TH/MM3 (1.8-7.7); BASOPHIL % 0.5 % (0.0-2.0); EOSINOPHIL % 0.4 % (0.0-4.0); HEMATOCRIT 33.8 % (39.0-51.0); HEMO FLAGS DIFF FINAL; LYMPH % 19.9 % (9.0-44.0); LYMPHOCYTE # 1.2 TH/MM3 (1.0-4.8); MEAN CELL VOLUME 91.1 FL (80.0-100.0); MEAN CORPUSCULAR HGB CONC 35.1 % (32.0-36.0); MONO % 7.9 % (0.0-8.0); NEUT % 71.3 % (16.0-70.0); PLATELET COUNT 132 TH/MM3 (150-450); RED BLOOD COUNT 3.71 MIL/MM3 (4.50-5.90); RED CELL DISTRIBUTION WIDTH 12.9 % (11.6-17.2); WHITE BLOOD COUNT 6.2 TH/MM3 (4.0-11.0)
[2016-10-27] MEDS: POTASSIUM PHOSPHATE/SODIUM PHOSPHATE 250 MG TAB PO SCH ×2 (14:00→20:28)
[2016-10-27] MEDS ORDERED: oxyCODONE/ACETAMINOPHEN 5 MG/325 MG TAB PO PRN (17:00)
--- NOTE | 2016-10-27 17:49 | MG ---
cc: MARIA L GRACE Lab No: Date: 10/27/2016 Age: Sex: M Race: ELECTROENCEPHALOGRAM NUMBER [id number] INTRODUCTION Right parietal lobe abnormality. Surgery. Had a seizure. Not on seizure medications. Now on Keppra and Depakote. Migraines. DESCRIPTION It looks like he has a large spike wave seen over the right temporal head chain and with some field in to the right central head chain with a little bit of effect in the left frontal central region at epoch 8 to start the recording. Diffuse theta and alpha rhythms are noted. There is some focal slowing in the theta and delta range over the right posterior temporal head region and some other sharps and spike waves or sharp waves seen over the right head region. This continues several times through the recording such as at epoch 52. There is a significant right seizure focus. Photic stimulation is performed without significant change in the background. Hyperventilation performed without significant change in the background. IMPRESSION There is a definite right posterior and mid temporal seizure focus and this patient needs take his medications and be compliant as he is a major risk for seizures on the results of this EEG. There is an active right seizure focus although no prolonged seizures are noted throughout this recording. MD EARLE Cintron/ABISAI /5:12 PM /5:37 PM
[2016-10-27] MEDS ORDERED: OXcarbazepine 600 MG TAB PO SCH (21:15)
--- NOTE | 2016-10-27 23:05 | MB ---
cc: ARLYN MALONE DATE OF CONSULTATION 10/27/16 REASON FOR CONSULTATION Seizures. HISTORY OF PRESENT ILLNESS Mr. 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 In the past was on Dilantin but had severe side effects with gingival hyperplasia and vision loss. More recently was on Vimpat and Keppra but apparently ran out of the medication as his insurance was not covering at. He presented to the emergency room with status seizures. He had a 30-minute seizure in the ER, a grand mal seizure, received 4 milligrams of IV Ativan and Versed with control, started on IV Keppra. He has had no recurrent seizures. PERSONAL HISTORY History of AVM, cerebral hemorrhage, secondary seizure disorder, hypertension. MEDICATIONS Current medications are: 1. Oxycodone for pain. 2. Valproic acid 500 milligrams b.i.d. 3. Keppra q. 12 hours. 4. Zofran p.r.n. 5. Lactulose. NEUROLOGIC EXAMINATION VITAL SIGNS: Blood pressure is 134/57, pulse is 61, respirations 23, temperature 98 degrees. NEURO: Higher cortical functions normal. Cranial nerves intact. Motor exam is normal. IMAGING STUDIES CT of the brain no acute change. Surgical changes are seen in the right parietal area which appear to be mainly chronic in nature. LABORATORY DATA White count 6200, hemoglobin 11.9, hematocrit 33.8%, platelet count is 132,000. Sodium is 140, potassium 4, chloride 110, CO2 24, BUN is 7, creatinine 0.93, GFR is 112, glucose 83, alk phos 64. Tox screen positive for benzodiazepines and cannabinoids. IMPRESSION Recurrent seizures related to previous AVM. RECOMMENDATIONS Continue the Keppra. The patient tells me that he does not want to take any medicines because he would need levels checked, therefore, will start Trileptal. Will also get case management consult to see what sort of financial assistance available for his medications. MD JUDITH Rosado/JESSE /8:57 PM /10:54 PM
[2016-10-27] MEDS: OXcarbazepine 600 MG TAB PO SCH (23:31)
[2016-10-28] VITALS (14 sets, daily range): BP systolic 110–153; BP diastolic 61–86; PULSE 41–69; RESP 11–31; TEMP 98–98.9; O2SAT 97–100
[2016-10-28] MEDS: CHLORHEXIDINE GLUCONATE 2 % 1 PACK (2 CLOTHS) TOP SCH (04:00)
[2016-10-28] MEDS: POTASSIUM PHOSPHATE/SODIUM PHOSPHATE 250 MG TAB PO SCH (06:08)
[2016-10-28] MEDS: levETIRAcetam 1000 MG INJ 100 ML IV SCH ×2 (06:08→12:44)
[2016-10-28] MEDS: NS + KCL 20 MEQ INJ 1,000 ML IV SCH ×2 (06:09→08:23)
[2016-10-28] MEDS: OXcarbazepine 600 MG TAB PO SCH (08:23)
[2016-10-28] MEDS: DOCUSATE SODIUM 50 MG/SENNA 8.6 MG TAB PO SCH (08:24)
[2016-10-28] MEDS: SODIUM CHLORIDE 0.9% FLUSH 10 ML FLUSH IV FLUSH SCH (08:24)
--- NOTE | 2016-10-28 08:44 | HHI.PR ---
Subjective Remarks resting comfortably with no distress. no seizures over night. headache has resolved. d/w the RN and no acute issues over night. Objective Vitals Vital Signs Date Time Temp Pulse Resp B/P Pulse Ox O2 Delivery O2 Flow Rate FiO2 10/28/16 08:00 98.0 44 11 118/86 100 10/28/16 06:00 41 10/28/16 04:00 98.7 69 31 120/61 100 10/28/16 04:00 69 10/28/16 02:00 45 10/28/16 00:00 98.9 46 18 110/62 100 10/28/16 00:00 46 10/27/16 22:00 54 10/27/16 20:00 49 10/27/16 20:00 98.7 49 19 120/60 99 10/27/16 18:00 58 10/27/16 17:00 73 10/27/16 16:00 98.8 61 23 134/57 100 10/27/16 16:00 61 10/27/16 15:00 61 29 59 10/27/16 15:00 61 10/27/16 14:00 71 25 144/96 100 10/27/16 14:00 71 10/27/16 13:00 62 23 142/66 100 10/27/16 13:00 62 10/27/16 12:00 74 43 131/74 100 10/27/16 12:00 73 10/27/16 10:45 58 10/27/16 10:00 58 10/27/16 09:45 62 10/27/16 09:45 98.7 62 20 114/54 100 10/27/16 09:10 97.9 78 16 118/65 99 I/O 10/27/16 10/27/16 10/27/16 10/28/16 10/28/16 10/28/16 06:59 14:59 22:59 06:59 14:59 22:59 Intake Total 2017 ml 645 ml 689 ml Output Total 2700 ml 300 ml 275 ml Balance -683 ml 345 ml 414 ml Intake Oral 660 ml IV Total 1357 ml 645 ml 689 ml Output Urine Total 2700 ml 300 ml 275 ml # Voids 3 # Bowel Movements 1 Result Diagram: 10/27/16 1318 10/27/16 0404 Imaging Last Impressions Head CT 10/26/16 0000 Signed Impressions: Service Date/Time: Wednesday, October 26, 2016 21:29 - CONCLUSION: 1. No acute intracranial abnormality. 2. 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 Mitchell Morales MD Objective Remarks GENERAL: This is a well-nourished, well-developed patient, in no apparent distress. CARDIOVASCULAR: Regular rate and regular rhythm without murmurs, gallops, or rubs. RESPIRATORY: Clear to auscultation. Breath sounds equal bilaterally. No wheezes , rales, or rhonchi. GASTROINTESTINAL: Abdomen soft, non-tender, nondistended. Normal, active bowel sounds MUSCULOSKELETAL: Extremities without clubbing, cyanosis, or edema. NEURO: Alert & Oriented x4 to person, place, time, situation. Moves all ext x4 Procedures none Medications and IVs Current Medications Ibuprofen (Motrin) 800 mg ONCE ONCE PO ; Start 10/26/16 at 17:00; Stop at 17:01; Status DC Lorazepam (Ativan Inj) 1 mg ONCE ONCE IM Last administered on 10/26/16 17:35 ; Start 10/26/16 at 17:30; Stop 10/26/16 at 17:31; Status DC Lorazepam 2 mg 2 mg STK-MED ONCE .ROUTE ; Start 10/26/16 at 17:19; Stop at 17:20; Status DC Levetriacetam (Keppra 1000 Mg Inj) 100 ml @ 400 mls/hr BOLUS ONCE IV Last administered on 10/26/16 18:49; Start 10/26/16 at 17:30; Stop 10/26/16 at 17:44 ; Status DC Lorazepam 2 mg 2 mg ONCE ONCE IV PUSH Last administered on 10/26/16 17:36; Start 10/26/16 at 17:30; Stop 10/26/16 at 17:31; Status DC Sodium Chloride (NS 1000 ml Inj) 1,000 ml @ 999 mls/hr BOLUS ONCE IV Last administered on 10/26/16 17:37; Start 10/26/16 at 17:45; Stop 10/26/16 at 18:45 ; Status DC Midazolam HCl (Versed Inj) 5 mg STK-MED ONCE .ROUTE Last administered on 18:49; Start 10/26/16 at 17:40; Stop 10/26/16 at 17:41; Status DC Fentanyl Citrate 25 mcg 25 mcg ONCE ONCE IV PUSH Last administered on 18:48; Start 10/26/16 at 18:15; Stop 10/26/16 at 18:16; Status DC Phenobarbital Sodium 1000 mg/ Sodium Chloride 107.6923 ml @ 215.... ONCE ONCE IV ; Start 10/26/16 at 18:15; Stop 10/26/16 at 22:14; Status DC Sodium Chloride 1,000 ml @ 999 mls/hr BOLUS ONCE IV Last administered on 10/26 20:00; Start 10/26/16 at 20:00; Stop 10/26/16 at 21:00; Status DC Potassium Chloride/Sodium Chloride (NS + KCl 20 Meq Inj) 1,000 ml @ 100 mls/hr Q10H IV Last administered on 10/28/16 08:23; Start 10/26/16 at 21:05 Sodium Chloride (NS Flush) 2 ml UNSCH PRN IV FLUSH FLUSH AFTER USING IV ACCESS ; Start 10/26/16 at 21:15 Sodium Chloride (NS Flush) 2 ml BID IV FLUSH Last administered on 10/28/16 08: 24; Start 10/27/16 at 09:00 Ondansetron HCl (Zofran Inj) 4 mg Q6H PRN IV NAUSEA OR VOMITING; Start at 21:15 Miscellaneous Information 1 Q361D XX ; Start 10/26/16 at 21:15 Chlorhexidine Gluconate (Chlorhexidine 2% Cloth) 3 pack Taper DAILY@04 TOP Last administered on 10/28/16 04:00; Start 10/27/16 at 04:00; Stop 10/23/17 at 03:59 Chlorhexidine Gluconate (Chlorhexidine 2% Cloth) 3 pack UNSCH PRN TOP HYGIENIC CARE; Start 10/26/16 at 21:15 Senna/Docusate Sodium (Payton-Colace) 1 tab BID PO Last administered on 08:11; Start 10/27/16 at 09:00 Magnesium Hydroxide (Milk Of Magnesia Liq) 30 ml Q12H PRN PO MILD - MODERATE CONSTIPATION; Start 10/26/16 at 21:15 Sennosides (Senokot) 17.2 mg Q12H PRN PO MODERATE - SEVERE CONSTIPATION; Start 10/26/16 at 21:15 Bisacodyl (Dulcolax Supp) 10 mg DAILY PRN RECTAL SEVERE CONSITIPATION; Start at 21:15 Lactulose 30 ml 30 ml DAILY PRN PO SEVERE CONSITIPATION; Start 10/26/16 at 21: 15 Levetriacetam 500 mg/Sodium Chloride 105 ml @ 420 mls/hr Q12HR IV ; Start 10/27 at 09:00; Stop 10/27/16 at 09:00; Status DC Potassium Chloride 100 ml @ 25 mls/hr ONCE ONCE IV Last administered on 21:15; Start 10/26/16 at 21:15; Stop 10/27/16 at 01:14; Status DC Levetriacetam/ Sodium Chloride (Keppra Inj/NS Inj) 110 ml @ 420 mls/hr Q12HR IV ; Start 10/27/16 at 09:00; Status Cancel Valproic Acid 500 mg 500 mg Q12HR PO Last administered on 10/27/16 20:29; Start 10/27/16 at 09:00; Stop 10/27/16 at 21:01; Status DC Valproate Sodium 500 mg/Sodium Chloride 105 ml @ 105 mls/hr ONCE ONCE IV Last administered on 10/26/16 22:30; Start 10/26/16 at 22:30; Stop 10/26/16 at 23:29; Status DC Levetriacetam (Keppra 1000 Mg Inj) 100 ml @ 400 mls/hr Q12HR IV Last administered on 10/27/16 20:29; Start 10/27/16 at 09:00; Stop 10/27/16 at 21:04 ; Status DC Potassium Phos/ Sodium Phos (K-Phos Neutral) 250 mg Q8HR PO Last administered on 10/28/16 06:08; Start 10/27/16 at 14:00; Stop 10/28/16 at 13:00 Oxycodone/ Acetaminophen (Percocet 5-325 Mg) 1 tab Q4H PRN PO HEADACHE/PAIN 1- 10 Last administered on 10/27/16 17:37; Start 10/27/16 at 17:00 Oxcarbazepine 600 mg 600 mg BID PO Last administered on 10/28/16 08:23; Start 10/27/16 at 21:00 Levetriacetam (Keppra 1000 Mg Inj) 100 ml @ 400 mls/hr Q8HR IV Last administered on 10/28/16 06:08; Start 10/27/16 at 22:00 Oxcarbazepine (Trileptal) 600 mg BID PO ; Start 10/27/16 at 21:15; Stop at 21:15; Status DC A/P Assessment and Plan A/P - seizure seizure precautions- EEG with definite right posterior and mid temporal seizure focus. continue Keppra- Trileptal was added- neurology consult appreciated. -acute kidney injury; resolved. -lactic acidosis- due to seizure- resolved. -hypokalemia;replaced -hypophosphatemia; replaced. Discharge Planning dc home when cleared by neurology. see med list. f/u; pcp and neurology. case management consulted to assist with medications/ follow-ups. d/w the patient and RN. Jesu Bailey MD Oct 28, 2016 08:44
[2016-10-28] MEDS ORDERED: OXCA600T PO (08:45)
--- NOTE | 2016-10-28 08:46 | HHI.DCPOC ---
Discharge Care Plan Diagnosis: (1) Seizure Additional Problems seizure Goals to Promote Your Health * To prevent worsening of your condition and complications * To maintain your health at the optimal level Directions to Meet Your Goals Take your medications as prescribed Follow your dietary instruction Follow activity as directed Keep your appointments as scheduled Take your immunizations and boosters as scheduled If your symptoms worsen call your PCP, if no PCP go to Urgent Care Center or Emergency Room Smoking is Dangerous to Your Health. Avoid second hand smoke Call the 24-hour hour crisis hotline for domestic abuse at Jesu Bailey MD Oct 28, 2016 08:46
--- NOTE | 2016-10-28 08:47 | HHI.DS ---
Discharge Summary Admission Date Oct 26, 2016 at 21:15 Discharge Date: Oct 28, 2016 Admitting Diagnosis Status Epilepticus (1) Seizure ICD Code: R56.9 Diagnosis: Principal Procedures none Brief History - From Admission 35-year-old male who presented to the ER with a headache. He has a history of seizures/epilepsy however has been off his seizure medication including Vimpat and Keppra for a few months due to insurance issues. Patient to [facility] had seizure for about 30 minutes in the ER. ER physician placed a femoral central line following which she received Ativan 4 mg and Versed 5 mg IV following which his seizures were controlled. He was subsequently loaded with Keppra 1 g IV. I was contacted and accepted patient for admission to the ICU. When I evaluated the patient in the ER he was drowsy/sedated secondary to the Ativan and Versed he received and possibly postictal. He had just come back from head CT results of which are pending. He was too sedated at this time to give details of his history which were obtained by discussion with ER physician and reviewing records. PFSH Past Medical History Hx Anticoagulant Therapy: No Anxiety: Yes Cardiovascular Problems: Yes (HTN) Chemotherapy: No Cerebrovascular Accident: Yes (AVM) Diabetes: No Diminished Hearing: No Endocrine: No Genitourinary: No Hypertension: Yes Immune Disorder: No Musculoskeletal: No Neurologic: Yes (AVM/ CVA) Reproductive: No Respiratory: No Migraines: Yes Seizures: Yes Past Surgical History Neurologic Surgery: Yes (brain sx with plate 2007) Social History Alcohol Use: No Tobacco Use: No Substance Use: Yes (marijuana once a week) Allergies-Medications (Allergen,Severity, Reaction): Coded Allergies: acetaminophen (Unverified Allergy, Severe, Anaphylaxis, 10/26/16) PATIENT DENIES ALLERGY oxycodone (Unverified Allergy, Severe, Anaphylaxis, 10/26/16) PATIENT DENIES ALLERGY penicillin G (Unverified Allergy, Severe, Anaphylaxis, 10/26/16) povidone-iodine (Unverified Allergy, Severe, 10/26/16) SKIN BURNING phenytoin (Unverified Adverse Reaction, Intermediate, blurry vision, ) Reported Meds & Prescriptions Reported Meds & Active Scripts Active Ibuprofen 800 Mg Tab 800 Mg PO Q6HR PRN ? Clindamycin (Clindamycin HCl) 150 Mg Cap 450 Mg PO Q8HR 10 Days Valproic Acid 250 Mg Cap 500 Mg PO TID 30 Days Reported Verapamil (Verapamil HCl) 120 Mg Tab 240 Mg PO DAILY Vimpat (Lacosamide) 50 Mg Tab 200 PO BID Keppra (Levetiracetam) 1,000 Mg Tab 1,000 Mg PO Q8HR CBC/BMP: 10/27/16 1318 10/27/16 0404 Significant Findings Laboratory Tests Test 10/26/16 10/26/16 10/26/16 10/27/16 17:25 18:25 22:00 04:04 Red Blood Count 4.40 MIL/MM3 (4.50-5.90) Potassium Level 3.0 MEQ/L (3.5-5.1) Carbon Dioxide Level 18.5 MEQ/L (21.0-32.0) Anion Gap 19 MEQ/L (5-15) Creatinine 1.32 MG/DL (0.60-1.30) Estimat Glomerular Filtration 75 ML/MIN (>89) Rate Random Glucose 158 MG/DL (74-106) Valproic Acid (Depakene) Level LESS THAN 3 MCG/ML (50-100) Lactic Acid Level 5.3 mmol/L (0.4-2.0) Aspartate Amino Transf 14 U/L (15-37) (AST/SGOT) Total Protein 6.3 GM/DL 6.1 GM/DL (6.4-8.2) (6.4-8.2) Urine Benzodiazepines Screen POS (NEG) Urine Cannabinoids Screen POS (NEG) Chloride Level 110 MEQ/L (98-107) Calcium Level 8.3 MG/DL (8.5-10.1) Phosphorus Level 2.2 MG/DL (2.5-4.9) Test 10/27/16 13:18 Red Blood Count 3.71 MIL/MM3 (4.50-5.90) Hemoglobin 11.9 GM/DL (13.0-17.0) Hematocrit 33.8 % (39.0-51.0) Platelet Count 132 TH/MM3 (150-450) Neutrophils (%) (Auto) 71.3 % (16.0-70.0) Imaging Last Impressions Head CT 10/26/16 0000 Signed Impressions: Service Date/Time: Wednesday, October 26, 2016 21:29 - CONCLUSION: 1. No acute intracranial abnormality. 2. 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 Mitchell Morales MD PE at Discharge GENERAL: This is a well-nourished, well-developed patient, in no apparent distress. CARDIOVASCULAR: Regular rate and regular rhythm without murmurs, gallops, or rubs. RESPIRATORY: Clear to auscultation. Breath sounds equal bilaterally. No wheezes , rales, or rhonchi. GASTROINTESTINAL: Abdomen soft, non-tender, nondistended. Normal, active bowel sounds MUSCULOSKELETAL: Extremities without clubbing, cyanosis, or edema. NEURO: Alert & Oriented x4 to person, place, time, situation. Moves all ext x4 Hospital Course - seizure seizure precautions- EEG with definite right posterior and mid temporal seizure focus. continue Keppra- Trileptal was added- neurology consult appreciated. -acute kidney injury; resolved. -lactic acidosis- due to seizure- resolved. -hypokalemia;replaced -hypophosphatemia; replaced. Pt Condition on Discharge: Good Discharge Disposition: Discharge Home Discharge Time: <= 30 minutes Discharge Instructions DIET: Follow Instructions for: Heart Healthy Diet Activities to Avoid: Driving Other Activity Instructions: no driving till f/u with neurology. Follow up Referrals: Neurology PCP Follow-up New Medications: Oxcarbazepine (Oxcarbazepine) 600 Mg Tab 600 MG PO BID seizure Days 30 Ref 0 TAB Continued Medications: Levetiracetam (Keppra) 1,000 Mg Tab 1000 MG PO Q8HR Control Seizures Days 30 Ref 0 TAB (This prescription has been renewed) Verapamil (Verapamil) 120 Mg Tab 120 MG PO DAILY hypertension Days 30 Ref 0 TAB (This prescription has been renewed) Discontinued Medications: Lacosamide (Vimpat) 50 Mg Tab 200 PO BID Control Seizures #60 Ref 0 TAB Valproic Acid (Valproic Acid) 250 Mg Cap 500 MG PO TID seizure Days 30 Ref 0 CAP Jesu Bailey MD Oct 28, 2016 08:47
--- NOTE | 2016-10-28 09:40 | HHI.PR ---
Addendum To [facility] Progress Not Reason for addendum: Additonal documentation (d/w ; the patient was cleared for discharge with outpatient f/u. will dc home after seen by case management.) Jesu Bailey MD Oct 28, 2016 09:40
[2016-10-28] MEDS ORDERED: KEPP10002 PO ×2 (09:43→09:45)
[2016-10-28] MEDS ORDERED: VERA120T3 PO ×2 (09:43→09:45)
== END 2016-10-28 14:40 | disposition home or self-care (01) | DRG 101 ==
LOC: NEPD 16:15 → NEDA 21:15 → NEDH 10-27 01:15 → HIMW 10-27 09:40
PROVIDERS: ADMIT Internal Medicine; ATTEND Internal Medicine
PROC: 06HM33Z Insertion of Infusion Device into Right Femoral Vein, Percutaneous Approach (ICD-10-PCS; principal; 2016-10-26)
DX: G40.901 Epilepsy, unspecified, not intractable, with status epilepticus (principal); N17.9 Acute kidney failure, unspecified; E87.2 Acidosis; E83.39 Other disorders of phosphorus metabolism; I10 Essential (primary) hypertension; E87.6 Hypokalemia; H54.7 Unspecified visual loss; Z78.1 Physical restraint status; Z86.73 Personal history of transient ischemic attack (TIA), and cerebral infarction without residual deficits; Z91.19 Patient's noncompliance with other medical treatment and regimen; G43.909 Migraine, unspecified, not intractable, without status migrainosus
CPT/HCPCS: 36556; 70450; 80048; 80053; 80076; 80164; 80177; 80307; 81001; 83605; 83735; 84100; 85025; 93005; 95819; 96361; 96372; 96374; 96375; J1953; J2060; J2250; J3010; J3480; J7030